=== PATIENT | female | born 1955 | race Caucasian/White ===

== ENCOUNTER → 2021-02-15 | Outpatient (CLI) | payer MEDICARE ==
--- NOTE | 2021-02-15 12:37 | XR ---
EXAMINATION TYPE: XR Hip Complete LT DATE OF EXAM: 02/15/2021 CLINICAL HISTORY: Left hip pain and osteoarthritis. TECHNIQUE: Single AP portable view of left hip is obtained immediately postoperatively. COMPARISON: None. FINDINGS: Left hip arthroplasty is seen and appears satisfactory in alignment and position. Sclerosis and remodeling of the acetabulum. No evidence of fracture or loosening prominent enthesophyte extend s from the greater trochanter superiorly. IMPRESSION: Metallic hardware from left hip arthroplasty is satisfactory in position. Sclerosis and remodeling of the acetabulum.
== END | disposition home or self-care (01) ==
LOC: RADXRMAIN 12:09
PROVIDERS: ATTEND Internal Medicine
DX: M25.852 Other specified joint disorders, left hip (principal); Z96.642 Presence of left artificial hip joint
CPT/HCPCS: 73502

== ENCOUNTER → 2021-04-27 | Outpatient (CLI) | payer MEDICARE ==
--- NOTE | 2021-04-28 10:11 | NM ---
EXAMINATION TYPE: NM DatScan Brain SPECT DATE OF EXAM: 04/27/2021 COMPARISON: NONE HISTORY: Dyskinesia TECHNIQUE: 10 drops of Lugol's solution was administered 1 hour prior to injection as a thyroid bloc carmela agent. After the administration of 4.4 mCi I-123 Ioflupane DaTscan. Images obtained [address] injection. SPECT images of the brain were acquired with axial and coronal reconstructions. FINDINGS: The axial SPECT images demonstrate increased background activity and reduced activity withi n the bilateral striata. IMPRESSION: Abnormal appearance highly suggestive of idiopathic Parkinson's disease or Parkinsonian s yndrome.
== END | disposition home or self-care (01) ==
LOC: RADNMMAIN 10:58
PROVIDERS: ATTEND Psychiatry & Neurology Neurology
DX: G20 Parkinson's disease (principal)
CPT/HCPCS: 78803; A9584

== ENCOUNTER → 2021-05-18 | Outpatient (CLI) | payer MEDICARE ==
--- NOTE | 2021-05-18 14:18 | BD ---
EXAMINATION TYPE: Axial Bone Density DATE OF EXAM: 05/18/2021 COMPARISON: NONE CLINICAL HISTORY: Postmenopausal female. Height: 64.5 IN Weight: 122 LBS FRAX RISK QUESTIONS: History of Fracture in Adulthood: LT HIP AGE 54 RISK FACTORS HISTORY OF: Hip Fracture (Left): YES When: AGE 54 Surgery to Hip(left): YES When: AGE 54 Family History of Osteoporosis: YES MOM AND GRANDMOTHER Active: LIMITED Postmenopausal woman: AGE 51 MEDICATIONS: Additional Medications: PARKINSON MEDS, EXAM MEASUREMENTS: Bone mineral densitometry was performed using the [employer]. Bone mineral density as measured about the Lumbar spine is: ----- L1-L4(G/cm2): 0.816 T Score Values are as follows: ----- L2: -3.4 ----- L3: -3.3 ----- L4: -2.3 ----- L1-L4: -3.0 Bone mineral density BASELINE Bone mineral density about the R hip (g/cm2): 0.679 T Score values are as follows: -----R Neck: -2.6 -----R Total: -2.4 Bone mineral density BASELINE IMPRESSION: Osteoporosis (T Score less than -2.5). There is increased fracture risk and therapy is usually indicated based on age. Re-Screen 1-2 years. NOTE: T-SCORE=SD OF THE YOUNG ADULT MEAN.
--- NOTE | 2021-05-19 07:58 | MM ---
Reason for exam: screening (asymptomatic). Baseline mammogram. History: Patient is postmenopausal. Family history of breast cancer in sister at age 60. Physical Findings: Nurse did not find any significant physical abnormalities on exam. MG 3D Screening Mammo W/Cad Bilateral CC and MLO view(s) were taken. The breast tissue is extremely dense which could obscure a lesion on mammography. There are benign appearing round calcifications bilaterally, greater in the left breast. There is no discrete abnormality. ASSESSMENT: Benign, BI-RAD 2 RECOMMENDATION: Routine screening mammogram of both breasts in 1 year.
== END | disposition home or self-care (01) ==
LOC: RADBDWWP 10:13
PROVIDERS: ATTEND Internal Medicine
DX: Z12.31 Encounter for screening mammogram for malignant neoplasm of breast (principal); M81.0 Age-related osteoporosis without current pathological fracture; Z78.0 Asymptomatic menopausal state; Z80.3 Family history of malignant neoplasm of breast
CPT/HCPCS: 77063; 77067; 77080

== ENCOUNTER → 2023-03-29 | Outpatient (CLI) | payer MEDICARE ==
--- NOTE | 2023-03-30 09:52 | MM ---
Reason for Exam: Screening (asymptomatic). Last mammogram was performed 1 year(s) and 10 month(s) ago. Patient History: Menarche at age 18. First Full-Term at age 24. Postmenopausal. Patient has history of breast feeding. Sister had breast cancer, age 60. Risk Values: Aurelia 5 year model risk: 3.0%. NCI Lifetime model risk: 9.9%. Prior Study Comparison: 05/18/2021 Bilateral Screening Mammogram, [facility]. Tissue Density: The breast tissue is heterogeneously dense. This may lower the sensitivity of mammography. Findings: Analyzed By CAD. No suspicious group of microcalcifications within either breast. Benign-appearing calcifications within both breasts. No new suspicious mass within left breast. Round asymmetry demonstrated within the medial right breast only on the CC view at middle depth. Overall Assessment: Incomplete: need additional imaging evaluation, BI-RAD 0 Management: Diagnostic Mammogram of the right breast. A clinical breast exam by your physician is recommended on an annual basis and results should be correlated with mammographic findings. [facility] will attempt to contact patient to return for supplemental views and ultrasound if indicated. Note on Aurelia scores and lifetime risk: 1. A Aurelia score greater than 3% is considered moderate risk. If this is the case, consider specialist referral to assess eligibility for a risk reducing agent. If overall lifetime risk for the development of breast cancer is 20% or higher, the patient may qualify for future screening with alternating mammogram and breast MRI. Electronically signed and approved by: Justin Mercado D.O.
== END | disposition home or self-care (01) ==
LOC: RADMAMWWP 14:44
PROVIDERS: ATTEND Internal Medicine
DX: Z12.31 Encounter for screening mammogram for malignant neoplasm of breast (principal); Z78.0 Asymptomatic menopausal state; Z80.3 Family history of malignant neoplasm of breast
CPT/HCPCS: 77063; 77067

== ENCOUNTER → 2023-03-29 | Outpatient (CLI) | payer MEDICARE ==
--- NOTE | 2023-03-30 00:09 | US ---
EXAMINATION TYPE: US carotid duplex BILAT DATE OF EXAM: 03/29/2023 COMPARISON: NONE CLINICAL INDICATION: Female, 68 years old with history of Z86.73 hx of tia; TECHNIQUE: Carotid duplex ultrasound examination. Indirect Doppler criteria was utilized. FINDINGS: EXAM MEASUREMENTS: RIGHT: Peak Systolic Velocity (PSV) cm/sec ----- Right CCA: 76.5 ----- Right ICA: 90.9 ----- Right ECA: 88.7 ICA/CCA ratio: 1.2 RIGHT: End Diastole cm/sec ----- Right CCA: 20.4 ----- Right ICA: 27.1 ----- Right ECA: 0.0 LEFT: Peak Systolic Velocity (PSV) cm/sec ----- Left CCA: 97.3 ----- Left ICA: 103.0 ----- Left ECA: 82.3 ICA/CCA ratio: 1.1 LEFT: End Diastole cm/sec ----- Left CCA: 24.6 ----- Left ICA: 25.4 ----- Left ECA: 8.5 VERTEBRALS (direction of flow): Right Vertebral: Antegrade Left Vertebral: Antegrade Rhythm: Normal No significant stenosis IMPRESSION: 1. No significant flow-limiting stenosis based on velocities. Criteria for Assigning % of Stenosis / Diameter reduction (Estimation based on the indirect measurements of the internal carotid artery velocities (ICA PSV). 1. Normal (no stenosis)=ICA PSV < 125 cm/s: ratio < 2.0: ICA EDV<40 cm/s. 2. Less than 50% stenosis=ICA PSV < 125 cm/s: ratio < 2.0: ICA EDV<40 cm/s. 3. 50 to 69% stenosis=ICA PSV of 125 to 230 cm/s: ration 2.0 ? 4.0: ICA EDV 40-100 cm/s. 4. Greater than 70% stenosis to near occlusion= ICA PSV > 230 cm/s: ratio > 4.0: ICA EDV > 100 cm/s. 5. Near occlusion= ICA PSV velocities may be low or undetectable: variable ratio and ICA EDV. 6. Total occlusion=unable to detect flow.
== END | disposition home or self-care (01) ==
LOC: RADUSWWP 14:46
PROVIDERS: ATTEND Internal Medicine
DX: Z86.73 Personal history of transient ischemic attack (TIA), and cerebral infarction without residual deficits (principal)
CPT/HCPCS: 93880

== ENCOUNTER → 2023-04-06 | Outpatient (CLI) | payer MEDICARE ==
--- NOTE | 2023-04-06 13:38 | MM ---
Reason for Exam: Additional evaluation requested from abnormal screening. Last screening mammogram was performed less than 1 month ago. Patient History: Menarche at age 18. First Full-Term at age 24. Postmenopausal. Patient has history of breast feeding. Sister had breast cancer, age 60. Risk Values: Aurelia 5 year model risk: 3.0%. NCI Lifetime model risk: 9.9%. Tissue Density: Right: The breast tissue is heterogeneously dense. This may lower the sensitivity of mammography. Findings: Analyzed By CAD. Basilar density persists seen best on the CC view medial to the nipple 3.4 cm from the nipple likely below the nipple on the MLO view. Ultrasound is recommended. Overall Assessment: Incomplete: need additional imaging evaluation, BI-RAD 0 Management: Diagnostic Breast Ultrasound of the right breast. . Results were given to the patient verbally at the time of exam. Patient should continue monthly self-breast exams. A clinical breast exam by your physician is recommended on an annual basis. This exam should not preclude additional follow-up of suspicious palpable abnormalities. Note on Aurelia scores and lifetime risk: 1. A Aurelia score greater than 3% is considered moderate risk. If this is the case, consider specialist referral to assess eligibility for a risk reducing agent. 2. If overall lifetime risk for the development of breast cancer is 20% or higher, the patient may qualify for future screening with alternating mammogram and breast MRI. Electronically signed and approved by: Gregory Carbajal M.D. Radiologis
--- NOTE | 2023-04-06 14:29 | USB ---
Reason for Exam: Additional evaluation requested from abnormal screening. Patient History: Menarche at age 18. First Full-Term at age 24. Postmenopausal. Patient has history of breast feeding. Sister had breast cancer, age 60. Risk Values: Aurelia 5 year model risk: 3.0%. NCI Lifetime model risk: 9.9%. Technique: Method: Targeted. Prior Study Comparison: 05/18/2021 Bilateral Screening Mammogram, [facility]. 03/29/2023 Bilateral MG 3D screening mammo w/cad, [facility]. Findings: The lower inner quadrant of the right breast and the retroareolar of the right breast were scanned. 5 x 3 mm cyst noted at the right 4:00 position 4 cm from the nipple. No solid masses are detected.. Overall Assessment: Benign, BI-RAD 2 Management: Screening Mammogram of both breasts in 1 year. A clinical breast exam by your physician is recommended on an annual basis and results should be correlated with mammographic findings. This exam should not preclude additional follow-up of suspicious palpable abnormalities. Results were given to the patient verbally at the time of exam. Electronically signed and approved by: Gregory Carbajal M.D. Radiologis
== END | disposition home or self-care (01) ==
LOC: RADMAMWWP 13:08
PROVIDERS: ATTEND Internal Medicine
DX: R92.8 Other abnormal and inconclusive findings on diagnostic imaging of breast (principal); Z78.0 Asymptomatic menopausal state; Z80.3 Family history of malignant neoplasm of breast
CPT/HCPCS: 77065; 76642; G0279; 77061

== ENCOUNTER → 2023-04-20 | Outpatient (CLI) | payer MEDICARE ==
[2023-04-20 16:41] LABS: BUN/Creat Ratio 48.17 Ratio (12.00-20.00); Blood Urea Nitrogen 28.9 mg/dL (9.0-27.0); Calcium 9.6 mg/dL (8.7-10.3); Carbon Dioxide 25.5 mmol/L (21.6-31.8); Chloride 102 mmol/L (96-109); Glucose 101 mg/dL (70-110); Magnesium 2.1 mg/dL (1.5-2.4); Potassium 4.2 mmol/L (3.5-5.5); Sodium 139 mmol/L (135-145)
== END | disposition home or self-care (01) ==
LOC: LABWHC1 11:12
PROVIDERS: ATTEND Internal Medicine
DX: G20 Parkinson's disease (principal); E87.5 Hyperkalemia
CPT/HCPCS: 36415; 80048; 82306; 82533; 82607; 83735

== ENCOUNTER → 2023-04-24 | Outpatient (CLI) | payer MEDICARE | END | disposition home or self-care (01) | LOC: LABWHC1 14:07 | PROVIDERS: ATTEND Internal Medicine | DX: E87.5 Hyperkalemia (principal) | CPT/HCPCS: 36415; 82088; 84244 ==

== ENCOUNTER → 2024-04-01 | Outpatient (CLI) | payer MEDICARE ==
--- NOTE | 2024-04-17 10:54 | MM ---
Reason for Exam: Screening (asymptomatic). Last screening mammogram was performed 12 month(s) ago. Patient History: Menarche at age 18. First Full-Term at age 24. Postmenopausal. Patient has history of breast feeding. Sister had breast cancer, age 60. Risk Values: Aurelia 5 year model risk: 3.0%. NCI Lifetime model risk: 9.5%. Prior Study Comparison: 05/18/2021 Bilateral Screening Mammogram, [facility]. 03/29/2023 Bilateral MG 3D screening mammo w/cad, [facility]. 04/06/2023 Right MG 3D work up w/cad RT, [facility]. Tissue Density: The breasts are extremely dense, which lowers the sensitivity of mammography. Findings: Analyzed By CAD. There is no suspicious group of microcalcifications or new suspicious mass in either breast. Benign-appearing calcifications. Stable asymmetric density in the outer margin (from multiple prior exams. Able chronic nodularity upper margin left breast. Overall Assessment: Benign, BI-RAD 2 Management: Screening Mammogram of both breasts in 1 year. . Patient should continue monthly self-breast exams. A clinical breast exam by your physician is recommended on an annual basis. This exam should not preclude additional follow-up of suspicious palpable abnormalities. Note on Aurelia scores and lifetime risk: 1. A Aurelia score greater than 3% is considered moderate risk. If this is the case, consider specialist referral to assess eligibility for a risk reducing agent. 2. If overall lifetime risk for the development of breast cancer is 20% or higher, the patient may qualify for future screening with alternating mammogram and breast MRI. Electronically signed and approved by: Chase Pettit M.D. Radiologis
== END | disposition home or self-care (01) ==
LOC: RADMAMWWP 12:57
PROVIDERS: ATTEND Internal Medicine
DX: Z12.31 Encounter for screening mammogram for malignant neoplasm of breast
CPT/HCPCS: 77063; 77067

== ENCOUNTER → 2024-05-15 | Outpatient (CLI) | payer MEDICARE ==
--- NOTE | 2024-05-15 11:37 | US ---
EXAMINATION TYPE: US liver DATE OF EXAM: 05/15/2024 COMPARISON: NONE CLINICAL INDICATION: Female, 69 years old with history of R74.8 ELEVATED LEVELS E55.9 VITAMIN D DEFIC IENCY; abn labs, no symptoms TECHNIQUE: Grayscale and color Doppler imaging of the right upper quadrant was performed. FINDINGS: EXAM MEASUREMENTS: Liver Length: 15.6cm Gallbladder Wall: 0.2cm CBD: 0.5 cm Right Kidney: 10.7 x 4.2 x 4.4 cm Pancreas: wnl Liver: wnl Gallbladder: neck fold Evidence for sonographic Bernstein's sign: no CBD: wnl Right Kidney: wnl IMPRESSION: No evidence for acute process. [facility], , 05/15/2024 11:34 AM
== END | disposition home or self-care (01) ==
LOC: RADUSWWP 10:36
PROVIDERS: ATTEND Internal Medicine
CPT/HCPCS: 76705

== ENCOUNTER 2024-06-11 13:54 | Emergency (ER) | payer MEDICARE ==
[2024-06-11 14:05] VITALS: RESP 18
--- NOTE | 2024-06-11 14:58 | ED ---
Upper Extremity HPI - General Chief Complaint: Extremity Injury, Upper Stated Complaint: fall, left wrist shoulder injury Time Seen by Provider: 06/11/24 14:10 Source: patient, RN notes reviewed Mode of arrival: ambulatory Limitations: no limitations - History of Present Illness Initial Comments: 69-year-old female presents emergency department chief complaint left arm injury. Patient states she fell on Monday. Patient states she was trapped between the wall and an object. Patient states that she has Parkinson's caused her to fall. She states she was laying there for 1 hour. Patient states that she has left shoulder pain, left wrist weakness states she cannot extend her wrist. No significant paresthesias states he had felt numb initially. - Related Data Allergies Allergy/AdvReac Type Severity Reaction Status Date / Time Sulfa (Sulfonamide Allergy Rash/Hives Verified 06/11/24 14:05 Antibiotics) Review of Systems ROS Statement: Those systems with pertinent positive or pertinent negative responses have been documented in the HPI. ROS Other: All systems not noted in ROS Statement are negative. Past Medical History Additional Past Medical History / Comment(s): parkinsons, Additional Past Surgical History / Comment(s): kaylaograhm, Past Psychological History: No Psychological Hx Reported Smoking Status: Never smoker Past Alcohol Use History: None Reported Past Drug Use History: None Reported General Exam Limitations: no limitations General appearance: alert, in no apparent distress Head exam: Present: atraumatic, normocephalic, normal inspection Neck exam: Present: normal inspection. Absent: tenderness, meningismus, lymphadenopathy Respiratory exam: Present: normal lung sounds bilaterally. Absent: respiratory distress, wheezes, rales, rhonchi, stridor Cardiovascular Exam: Present: regular rate, normal rhythm, normal heart sounds. Absent: systolic murmur, diastolic murmur, rubs, gallop, clicks Extremities exam: Present: other (There is tenderness at the proximal aspect of L humerus, patient is unable to extend her wrist neurovascular intact personal service workers strength equal bilaterally) Skin exam: Present: warm, dry, intact, normal color. Absent: rash Course Vital Signs 06/11/24 14:00 Temperature 98.4 F Pulse Rate 110 H Respiratory 18 Rate Blood Pressure 142/74 O2 Sat by Pulse 95 Oximetry Medical Decision Making - Medical Decision Making Was pt. sent in by a medical professional or institution (, PA, [employer], urgent care, hospital, or fci...) When possible be specific @ -No Did you speak to anyone other than the patient for history (EMS, parent, family, police, friend...)? What history was obtained from this source @ -No Did you review nursing and triage notes (agree or disagree)? Why? @ -I reviewed and agree with nursing and triage notes Were old charts reviewed (outside hosp., previous admission, EMS record, old EKG, old radiological studies, urgent care reports/EKG's, fci records)? Report findings @ -No old charts were reviewed Differential Diagnosis (chest pain, altered mental status, abdominal pain women, abdominal pain men, vaginal bleeding, weakness, fever, dyspnea, syncope, headache, dizziness, GI bleed, back pain, seizure, CVA, palpatations, mental health, musculoskeletal)? @ -Fall, left shoulder dislocation, arm fracture, radial nerve palsy EKG interpreted by me (3pts min.). @ -None X-rays interpreted by me (1pt min.). @ -X-ray left shoulder shows possible proximal humerus fracture CT interpreted by me (1pt min.). @ -None done U/S interpreted by me (1pt. min.). @ -None done What testing was considered but not performed or refused? (CT, X-rays, U/S, labs)? Why? @ -None What meds were considered but not given or refused? Why? @ -None Did you discuss the management of the patient with other professionals (professionals i.e. , PA, [employer], lab, RT, psych nurse, social sciences professor, plant puller, teacher, third officer, pillowcase cutter)? Give summary @ -No Was smoking cessation discussed for >3mins.? @ -No Was critical care preformed (if so, how long)? @ -No Were there social determinants of health that impacted care today? How? (Homelessness, low income, unemployed, alcoholism, drug addiction, transportation, low edu. Level, literacy, decrease access to med. care, custodial, rehab)? @ -No Was there de-escalation of care discussed even if they declined (Discuss DNR or withdrawal of care, Hospice)? DNR status @ -No What co-morbidities impacted this encounter? (DM, HTN, Smoking, COPD, CAD, Cancer, CVA, ARF, Chemo, Hep., AIDS, mental health diagnosis, sleep apnea, morbid obesity)? @ -None Was patient admitted / discharged? Hospital course, mention meds given and route, prescriptions, significant lab abnormalities, going to OR and other pertinent info. @ -Discharge patient has possible humerus fracture was placed in a sling she does have radial nerve palsy more likely from the fall, prolonged laying on her left arm. She will follow-up with orthopedics regarding this. Undiagnosed new problem with uncertain prognosis? @ -No Drug Therapy requiring intensive monitoring for toxicity (Heparin, Nitro, Insulin, Cardizem)? @ -No Were any procedures done? @ -No Diagnosis/symptom? @ -Proximal humerus fracture, radial nerve palsy Acute, or Chronic, or Acute on Chronic? @ -Acute Uncomplicated (without systemic symptoms) or Complicated (systemic symptoms)? @ -Uncomplicated Side effects of treatment? @ -No Exacerbation, Progression, or Severe Exacerbation? @ -No Poses a threat to life or bodily function? How? (Chest pain, USA, HI, pneumonia, PE, COPD, DKA, ARF, appy, cholecystitis, CVA, Diverticulitis, Homicidal, Suicidal, threat to staff... and all critical care pts) @ -No Disposition Clinical Impression: Left humeral fracture, Radial nerve palsy Disposition: HOME SELF-CARE Condition: Stable Instructions (If sedation given, give patient instructions): Arm Fracture in Adults (ED) Additional Instructions: Please return to the Emergency Department if symptoms worsen or any other concerns. Is patient prescribed a controlled substance at d/c from ED?: No Referrals: Nguyễn Gandhi DO [Primary Care Provider] - 1-2 days Andrae Bernstein MD [STAFF PHYSICIAN] - 1-2 days Time of Disposition: 16:09
--- NOTE | 2024-06-11 15:17 | XR ---
EXAMINATION TYPE: XR shoulder complete 3 views LT DATE OF EXAM: 06/11/2024 Comparison: None Clinical History: 69-year-old female fall on Monday, pain Findings: AC joint appears congruent and intact. Subacromial space is preserved. There is mild degenerative spu rring at the glenoid. Some irregularity and lucency along the mid articular surface of the humeral he ad. Small delineation greater tuberosity. Otherwise, no acute fracture, subluxation or dislocation is seen. Impression: 1. Mild glenohumeral joint osteoarthrosis. 2. Either projectional artifact versus subtle subchondral impaction injury along the mid humeral head articular surface. [facility], , 06/11/2024 3:15 PM
[2024-06-11 16:43] VITALS: BP 137/82; PULSE 98; TEMP 98.2
== END 2024-06-11 16:43 | disposition home or self-care (01) ==
LOC: EC 13:54
CPT/HCPCS: 99283

== ENCOUNTER 2024-07-15 15:18 | Inpatient (IN) | payer MEDICARE ==
--- NOTE | 2024-07-15 16:00 | ED ---
Extremity Problem HPI - General Chief complaint: Recheck/Abnormal Lab/Rx Stated complaint: Numbness R Leg,Lower Pelvic Pain Time Seen by Provider: 07/15/24 15:33 Source: patient, RN notes reviewed Mode of arrival: ambulatory Limitations: no limitations - History of Present Illness Initial comments: This is a 69-year-old female who presents to the emergency department for pelvic pain and right leg numbness. States that yesterday she was just sitting down and she started to develop pain in the right side of her pelvis/hip and right lower back. She then started to develop numbness going down the leg. States that pain has since persisted. She is taking ibuprofen without any relief in symptoms. Denies any known injuries. She does have Parkinson's and tends to fall frequently, however they do not recall her falling recently. She usually is able to ambulate with a walker, however since she developed this pain she has been unable to ambulate. - Related Data Home Medications Medication Instructions Recorded Confirmed Carbidopa-Levodopa ER 25-100Mg 1 tab PO BID@1000,1900 07/15/24 07/15/24 [Sinemet CR 25-100 mg] Carbidopa-Levodopa ER 50-200Mg 1 tab PO BID@0700,1500 07/15/24 07/15/24 [Sinemet CR 50-200 mg] Metoprolol Succinate (ER) [Toprol 25 mg PO HS 07/15/24 07/15/24 Xl] Pramipexole Di-HCl [Mirapex ER] 0.75 mg PO BID 07/15/24 07/15/24 amantadine HCL [Amantadine] 100 mg PO BID 07/15/24 07/15/24 Allergies Allergy/AdvReac Type Severity Reaction Status Date / Time Sulfa (Sulfonamide Allergy Rash/Hives Verified 07/15/24 16:57 Antibiotics) Review of Systems ROS Statement: Those systems with pertinent positive or pertinent negative responses have been documented in the HPI. ROS Other: All systems not noted in ROS Statement are negative. Past Medical History Additional Past Medical History / Comment(s): parkinsons, Additional Past Surgical History / Comment(s): renuka, Past Psychological History: No Psychological Hx Reported Smoking Status: Never smoker Past Alcohol Use History: None Reported Past Drug Use History: None Reported General Exam Limitations: no limitations General appearance: alert, in no apparent distress Head exam: Present: atraumatic, normocephalic, normal inspection Respiratory exam: Present: normal lung sounds bilaterally. Absent: respiratory distress, wheezes, rales, rhonchi, stridor Cardiovascular Exam: Present: regular rate, normal rhythm, normal heart sounds. Absent: systolic murmur, diastolic murmur, rubs, gallop, clicks Extremities exam: Present: other (Tenderness to palpation over the right hip. Range of motion of the right lower extremity is limited by pain. No tenderness to the rest of the right lower extremity. 2+ DP and PT pulses) Neurological exam: Present: alert, oriented X3, CN II-XII intact Psychiatric exam: Present: normal affect, normal mood Skin exam: Present: warm, dry, intact, normal color. Absent: rash Course Vital Signs 07/15/24 07/15/24 07/15/24 15:23 18:56 20:50 Temperature 98.6 F Pulse Rate 100 86 102 H Respiratory 18 16 18 Rate Blood Pressure 156/81 139/69 O2 Sat by Pulse 98 96 93 L Oximetry 07/15/24 21:18 Temperature 99.1 F Pulse Rate Respiratory Rate Blood Pressure O2 Sat by Pulse Oximetry Medical Decision Making - Medical Decision Making This is a 69-year-old female who presents to the emergency department for right- sided hip pain and right leg numbness. Was pt. sent in by a medical professional or institution? @ -No Did you speak to anyone other than the patient for history? @ -No Did you review nursing and triage notes? @ -Yes, and I agree, it is accurate with regards to the patient's symptoms. Were old charts reviewed? @ -No Differential Diagnosis? @ -Differential Musculoskeletal: Muscular strain, contusion, ligament sprain, fracture, arthritis, septic arthritis, bursitis, cellulitis, muscle spasm, nerve compression, DVT, arterial occlusion, herpes zoster, electrolyte abnormality, tumor.... This is not meant to be in all inclusive list EKG interpreted by me (3pts min.)? @ -Not obtained X-rays interpreted by me (1pt min.)? @ -X-ray of the lumbar spine and right hip/AP pelvis obtained. My interpretation of both images identifies no acute fractures. CT interpreted by me (1pt min.)? @ -CT scan of the pelvis obtained. My interpretation identifies a right piriformis hematoma U/S interpreted by me (1pt. min.)? @ -Not obtained What testing was considered but not performed? (CT, X-rays, U/S, labs)? Why? @ -None What meds were considered but not given? Why? @ -None Did you discuss the management of the patient with other professionals? @ -Yes, Dr. Kwan, orthopedics, who advised admission if patient cannot ambulate. Surgical plan unclear at this time. Case discussed with medical team who requested orthopedic admission with them on consult. Orthopedics is agreeable. Did you reconcile home meds? @ -No Was smoking cessation discussed for >3mins.? @ -No Was critical care preformed (if so, how long)? @ -No Were there social determinants of health that impacted care today? How? (Homelessness, low income, unemployed, alcoholism, drug addiction, transportation, low edu. Level, literacy, decrease access to med. care, snf, rehab)? @ -No Was there de-escalation of care discussed even if they declined? (Discuss DNR or withdrawal of care, Hospice)? @ -No What co-morbidities impacted this encounter? (DM, HTN, Smoking, COPD, CAD, Cancer, CVA, Hep., AIDS, mental health diagnosis, sleep apnea, morbid obesity)? @ -Parkinson's Was patient admitted / discharged? @ -Admitted. We first started with x-rays of the lumbar spine and right hip/AP pelvis. No acute findings were identified. Patient was given pain medication, but was still unable to ambulate. We then proceeded with a CT scan of the pelvis. This demonstrated a right piriformis hematoma tracking near the sciatic nerve, likely contributing to the numbness. She also has an acute right sacral ala fracture with minimal separation and an acute left periprosthetic fracture of the left acetabulum. Case discussed with Dr. Kwan, orthopedics. She advised that the surgical plan at this point is not entirely clear, however if the patient is still unable to ambulate, admission would be advised. Patient subsequently admitted to orthopedics for further management of the right piriformis hematoma with sacral fracture and left periprosthetic fracture of the left acetabulum. Medicine consulted for medical management. Case discussed with ED attending Dr. Hayden. Undiagnosed new problem with uncertain prognosis? @ -None Drug Therapy requiring intensive monitoring for toxicity (Heparin, Nitro, Insulin, Cardizem)? @ -None Were any procedures done? @ -None Diagnosis/symptom? @ -Right piriformis hematoma, sacral fracture, left periprosthetic fracture of left acetabulum Acute, or Chronic, or Acute on Chronic? @ -Acute Uncomplicated (without systemic symptoms) or Complicated (systemic symptoms)? @ -Uncomplicated Side effects of treatment? @ -None Exacerbation, Progression, or Severe Exacerbation] @ -Not applicable Poses a threat to life or bodily function? @ -Yes, patient is unable to ambulate - Lab Data Result diagrams: 07/15/24 19:34 07/15/24 19:34 Lab Results 07/15/24 07/15/24 07/15/24 Range/Units 19:34 19:34 19:34 WBC 7.9 (3.8-10.6) k/uL RBC 3.82 (3.80-5.40) m/uL Hgb 12.1 (11.4-16.0) gm/dL Hct 36.9 (34.0-46.0) % MCV 96.5 (80.0-100.0) fL MCH 31.6 (25.0-35.0) pg MCHC 32.7 (31.0-37.0) g/dL RDW 12.9 (11.5-15.5) % Plt Count 274 (150-450) k/uL MPV 8.3 Neutrophils % 77 % Lymphocytes % 14 % Monocytes % 5 % Eosinophils % 2 % Basophils % 1 % Neutrophils # 6.1 (1.3-7.7) k/uL Lymphocytes # 1.1 (1.0-4.8) k/uL Monocytes # 0.4 (0-1.0) k/uL Eosinophils # 0.2 (0-0.7) k/uL Basophils # 0.1 (0-0.2) k/uL PT 11.5 (10.0-12.5) sec INR 1.1 (<1.2) APTT 22.2 (22.0-30.0) sec Sodium 138 (137-145) mmol/L Potassium 4.0 (3.5-5.1) mmol/L Chloride 110 H (98-107) mmol/L Carbon Dioxide 25 (22-30) mmol/L Anion Gap 3 mmol/L BUN 23 H (7-17) mg/dL Creatinine 0.53 (0.52-1.04) mg/dL Est GFR (CKD-EPI)AfAm >90 (>60 ml/min/1.73 sqM) Est GFR (CKD-EPI)NonAf >90 (>60 ml/min/1.73 sqM) Glucose 87 (74-99) mg/dL Calcium 8.8 (8.4-10.2) mg/dL Total Bilirubin 0.5 (0.2-1.3) mg/dL AST 23 (14-36) U/L ALT <6 (4-34) U/L Alkaline Phosphatase 145 H (38-126) U/L Total Protein 5.9 L (6.3-8.2) g/dL Albumin 3.3 L (3.5-5.0) g/dL - Radiology Data Radiology results: report reviewed, image reviewed Disposition Clinical Impression: Hematoma of muscle, Periprosthetic fracture around internal prosthetic hip joint, Sacral fracture Disposition: ADMITTED IP TO THIS HOSP
[2024-07-15] MEDS: KETOROLAC 15 MG/ML 1 ML VIAL IVP STA (16:01)
[2024-07-15] MEDS: MORPHINE SULFATE 4 MG/ML SYRINGE IVP STA (16:02)
--- NOTE | 2024-07-15 16:46 | XR ---
EXAMINATION TYPE: XR lumbar spine 2 or 3V DATE OF EXAM: 07/15/2024 4:42 PM COMPARISON: None CLINICAL INDICATION: Female, 69 years old with history of Pain; TECHNIQUE: XR lumbar spine 2 or 3V - Frontal, lateral and coned in L5-S1 lateral views of the spine. FINDINGS: No evidence of any acute osseous pathology. No evidence of loss of vertebral body height i s seen. There is normal alignment of the lumbar vertebral bodies. Scattered disc space narrowing. Mul tilevel marginal osteophyte formation throughout the visualized spine. There is facet joint arthropat hy throughout the spine. Scattered at least mild neural foraminal stenosis. Atherosclerosis of the ar terial vasculature. IMPRESSION: 1. No acute fracture. 2. Mild multilevel disc degeneration. [facility], , 07/15/2024 4:44 PM
--- NOTE | 2024-07-15 16:47 | XR ---
EXAMINATION TYPE: XR Hip RT and AP Pelvis DATE OF EXAM: 07/15/2024 4:42 PM COMPARISON: None CLINICAL INDICATION: Female, 69 years old with history of Pain; PHH, pain TECHNIQUE: XR Hip RT and AP Pelvis; hip was examined in the frontal and lateral projections and a AP pelvis. FINDINGS: Post arthroplasty changes to the left hip, hardware is intact, alignment is appropriate. No evidence of fracture. No evidence of any acute osseous pathology or joint dislocation. Right hip mild degeneration with osteophyte formation joint space tearing. IMPRESSION: 1. Mild right hip osteoarthrosis. 2. Left hip arthroplasty with hardware intact and in appropriate alignment. No acute fracture. [facility], , 07/15/2024 4:45 PM
[2024-07-15] MEDS: HYDROmorphone 0.5 MG/0.5 ML SYRINGE IVP STA (17:31)
[2024-07-15] MEDS: LORazepam 2 MG/ML INJ IV STA (17:31)
--- NOTE | 2024-07-15 18:57 | CT ---
EXAMINATION TYPE: CT pelvis wo con DATE OF EXAM: 07/15/2024 6:34 PM COMPARISON: Radiograph same day CLINICAL INDICATION: Female, 69 years old with history of Right sided hip pain; Right hip pain TECHNIQUE: Axial CT pelvis wo con;Sagittal and coronal reformats were created on a separate workstat ion. Contrast used: mL of , (none if empty) Oral contrast used: (none if empty) CT DLP: 403.3 mGycm, Automated exposure control for dose reduction was used. FINDINGS: STOMACH AND BOWEL: No evidence of bowel obstruction. PERITONEUM/RETROPERITONEUM: No evidence of pneumoperitoneum or free fluid. VASCULATURE: No evidence of aortic aneurysm. MUSCULOSKELETAL: No fractures identified including nondisplaced right sacral alar fracture. There is associated hematoma tracking along the piriformis muscle. The sciatic nerve on the right. Left peripr osthetic fracture of the pelvis. Left inferior pubic ramus cortical buckling suggestive of fracture. LYMPH NODES: No gross evidence for lymphadenopathy. SOFT TISSUE/ABDOMINAL WALL: Unremarkable IMPRESSION: 1. Acute left periprosthetic fracture of the left acetabulum. 2. Acute right sacral ala fracture with minimal separation. 3. Right piriformis hematoma tracking near the sciatic nerve. 4. Left inferior pubic ramus fracture with cortical buckling, this is age indeterminate possibly sub acute to more remote. [facility], , 07/15/2024 6:54 PM
[2024-07-15] MEDS ORDERED: NALOXONE 0.4 MG/ML 1 ML VIAL IV PRN (19:51)
[2024-07-15] MEDS ORDERED: ACETAMINOPHEN TAB 325 MG TAB PO PRN (19:51)
[2024-07-15 19:54] LABS: Basophils # (A) 0.1 k/uL (0-0.2); Basophils % (A) 1 %; Eosinophils # (A) 0.2 k/uL (0-0.7); Eosinophils % (A) 2 %; HCT 36.9 % (34.0-46.0); HGB 12.1 gm/dL (11.4-16.0); Lymphocytes # (A) 1.1 k/uL (1.0-4.8); Lymphocytes % (A) 14 %; MCH 31.6 pg (25.0-35.0); MCHC 32.7 g/dL (31.0-37.0); MCV 96.5 fL (80.0-100.0); Mean Platelet Volume 8.3; Monocytes # (A) 0.4 k/uL (0-1.0); Monocytes % (A) 5 %; Neutrophils # (A) 6.1 k/uL (1.3-7.7); Neutrophils % (A) 77 %; Platelet Count 274 k/uL (150-450); RBC 3.82 m/uL (3.80-5.40); RDW 12.9 % (11.5-15.5); WBC 7.9 k/uL (3.8-10.6)
[2024-07-15 20:02] LABS: INR 1.1 (<1.2); Partial Thromboplastin Time 22.2 sec (22.0-30.0); Prothrombin Time 11.5 sec (10.0-12.5)
[2024-07-15 20:09] LABS: ALT <6 U/L (4-34); AST 23 U/L (14-36); African American GFR (CKD) >90 (>60 ml/min/1.73 sqM); Albumin 3.3 g/dL (3.5-5.0); Alkaline Phosphatase 145 U/L (38-126); Anion Gap 3 mmol/L; Blood Urea Nitrogen 23 mg/dL (7-17); Calcium 8.8 mg/dL (8.4-10.2); Carbon Dioxide 25 mmol/L (22-30); Chloride 110 mmol/L (98-107); Glucose 87 mg/dL (74-99); Non-African American GFR(CKD) >90 (>60 ml/min/1.73 sqM); Sodium 138 mmol/L (137-145); Total Bilirubin 0.5 mg/dL (0.2-1.3); Total Protein 5.9 g/dL (6.3-8.2)
[2024-07-15] MEDS: METOPROLOL SUCCINATE (ER) 25 MG TAB.ER.24H PO SCH (20:47)
[2024-07-15] MEDS: PRAMIPEXOLE 0.25 MG TAB PO SCH (20:47)
[2024-07-15] MEDS: HYDROcodone/APAP 5-325MG 1 EACH TAB PO PRN (20:47)
--- NOTE | 2024-07-15 21:16 | P.CONS ---
History of Present Illness - Reason for Consult Consult date: 07/15/24 Medical management Requesting physician: Hanna Barnes - Chief Complaint Pelvic pain - History of Present Illness Patient is a 69 year old female with past medical history of parkinson's disease, osteoporosis and frequent falls who presented to the ED with right sided pelvic pain and right leg numbness. She mentions the pain started yesterday when she was sitting in her chair. She was trying to reach for something when she experienced the pain on the right side of the hip and lower back. The pain was a 10 out of 10 severity. Subsequently her right leg started feeling numb. Currently the pain is still 10/10 that makes it difficult for her to ambulate but she notes an improvement in her numbness. She uses a walker at home to ambulate. She states that she falls frequently due to her parkinson's disease and most of the times she lands on her hips. She reports sustaining a fall about 6 weeks ago. At the time she fell on her left side and hurt her left upper extremity. She did not hit her head, but she was not able to get up on her own and was lying on the floor for 1 hour. She did get it checked out at the time and the evaluation was negative for a fracture. Additionally, she states her dyskinesia has gotten worse recently. The dyskinesia is intermittent. When she doesn't move for a long time her dyskinesia tends to get worse. She reports that both her legs have been getting progressively weaker over the past several months. Moreover, she had a bone density scan done in 2020 that shows T score < -2.5, consitent with osteoporosis. She also endorses shortness of breath, nausea while taking her medications and an increased fear of falling. Denies fever, chills, chest pain, cough, abdominal pain, vomiting, slurred speech, headache. Case discussed with the ED provider and ED documentation reviewed. In the ED patient was treated with Dilaudid 0.5 mg, ketorolac 15 mg, lorazepam 1 mg, morphine 4 mg. -Vitals on admission T 98.6 F, TN 100, RR 18, BP 156/81, O2 sat 98% on room air -Lumbar spine X ray shows no acute fracture, mild multilevel disc degeneration -Hip/pelvis x-ray shows mild right hip osteoarthritis, left hip arthroplasty with hardware intact and in appropriate alignment, no acute fracture -Pelvis CT shows acute left periprosthetic fracture of the left acetabulum, acute right sacral ala fracture with minimal separation, right pyriformis hematoma tracking near sciatic nerve, left inferior pubic ramus fracture with cortical buckling-subacute/remote -CBC shows WBC 7.9, hemoglobin 12.1, platelet count 274 -CMP shows Na 138, potassium 4.0, BUN 23, ALP 145, total protein 5.9, albumin 3.3 -Coagulation panel shows PT 11.5, INR 1.1, APTT 22.2 Review of systems: Pertinent positives and negatives as discussed in HPI, a complete review of systems was performed and all other systems are negative. PMH: Parkinson's disease, osteoporosis PSH: Left partial hip replacement 20-25 years ago Allergies: Sulfa Social history: Tobacco: Never smoker Alcohol: Denies use Recreational drugs: Denies use Travel: No recent travel history Sick contacts: None Physical examination: Vital signs reviewed General: nontoxic, no distress, appears at stated age, normal BMI, masked facies Derm: warm, dry, intact Head: atraumatic, normocephalic, symmetric Eyes: EOMI, anicteric sclera Mouth: no lip lesion, mucus membranes moist Cardiovascular: S1 S2 reg, no murmur Lungs: CTA bilateral, no rhonchi, no rales, no accessory muscle use Abdominal: soft, non-tender to palpation Extremities: No limb atrophy or contractures noted, no hip skin abnormalities noted, no edema noted Neuro: Alert and Oriented, strenght 5/5 of the UE b/l, cogwheel rigidity, Dyskinesia and strength 3/5 of the LE b/l, Psych: well appearing, appropriate affect Assessment/Plan: Patient is a 69 year old female with PMH of parkinson's disease, osteoporosis and multiple falls who presented to the ED with right sided pelvic pain and right leg numbness. She has been admitted for observation and monitoring by the primary surgical team and she is seen in medical consultation for medical management. Active: #. Elevated alkaline phosphatase -ALP 145 -Vitamin D 25-Hydroxy level in 02/12 -17.3 ng/ml -Bone density scan in 2020 showed T< -2.5, osteoporosis -Liver ultrasound in 06/06 showed no evidence for acute process -Monitor CMP #. Parkinson's disease -Continue home meds Carbidop-levodopa 25-100 mg PO BID(1000,1900) and 50-100 PO BID(0700,1500), Amantadine 100 mg PO BID, Pramipexole 0.75 mg PO BID #. Hypertension -Continue home med metoprolol 25 mg PO HS #. Right Sacral ala fracture #. Right pyriformis hematoma #. Periprosthetic fracture of the left acetabulum -Pelvis CT shows acute left periprosthetic fracture of the left acetabulum, acute right sacral ala fracture with minimal separation, right pyriformis hematoma tracking near sciatic nerve, left inferior pubic ramus fracture with cortical buckling-subacute/remote -Lumbar spine X ray shows no acute fracture, mild multilevel disc degeneration -Hip/pelvis x-ray shows mild right hip osteoarthritis, left hip arthroplasty with hardware intact and in appropriate alignment, no acute fracture -Patient currently on acetaminophen 60 mg p.o. every 6 hours as needed, ibuprofen 400 mg p.o. every 6 hours as needed, ketorolac 15 mg IVP every 6 hours as needed(PS 4-6), [place] p.o. every 4 hours as needed (PS 4-6)morphine 4 mg IV every 4 hours as needed(PS 7-10) for pain management per primary surgical team. #. Nausea and vomiting -Continue Ondansetron 4 mg IVP Q8HR PRN F: None E: Replete as required N: Regular diet A: Ambulatory DVT prophylaxis: Defer to primary surgery GI prophylaxis: Pantoprazole 40 mg PO daily Past Medical History Additional Past Medical History / Comment(s): parkinsons, Additional Past Surgical History / Comment(s): renuka, Past Psychological History: No Psychological Hx Reported Smoking Status: Never smoker Past Alcohol Use History: None Reported Past Drug Use History: None Reported Medications and Allergies Home Medications Medication Instructions Recorded Confirmed Type Carbidopa-Levodopa ER 25-100Mg 1 tab PO BID@1000,1900 07/15/24 07/15/24 History [Sinemet CR 25-100 mg] Carbidopa-Levodopa ER 50-200Mg 1 tab PO BID@0700,1500 07/15/24 07/15/24 History [Sinemet CR 50-200 mg] Metoprolol Succinate (ER) [Toprol 25 mg PO HS 07/15/24 07/15/24 History Xl] Pramipexole Di-HCl [Mirapex ER] 0.75 mg PO BID 07/15/24 07/15/24 History amantadine HCL [Amantadine] 100 mg PO BID 07/15/24 07/15/24 History Allergies Allergy/AdvReac Type Severity Reaction Status Date / Time Sulfa (Sulfonamide Allergy Rash/Hives Verified 07/15/24 16:57 Antibiotics) Physical Exam Vitals: Vital Signs Temp Pulse Resp BP Pulse Ox 07/15/24 18:56 86 16 156/81 96 07/15/24 15:23 98.6 F 100 18 98 Intake and Output 07/15/24 07/15/24 07/15/24 06:59 14:59 22:59 Other: Weight 56.699 kg Results CBC & Chem 7: 07/15/24 19:34 07/15/24 19:34
[2024-07-15] MEDS: KETOROLAC 15 MG/ML 1 ML VIAL IVP PRN (23:57)
[2024-07-16] MEDS: PANTOPRAZOLE 40 MG TABLET PO SCH (07:30)
[2024-07-16] MEDS: CARBIDOPA-LEVODOPA ER 50-200MG 1 EACH TABLET.ER PO SCH (07:30)
[2024-07-16] MEDS: MORPHINE SULFATE 4 MG/ML SYRINGE IV PRN (07:46)
[2024-07-16 07:54] LABS: Basophils % (A) 1 %; Eosinophils # (A) 0.1 k/uL (0-0.7); Eosinophils % (A) 2 %; HCT 37.3 % (34.0-46.0); HGB 11.6 gm/dL (11.4-16.0); Hypochromasia Slight; Lymphocytes # (A) 0.9 k/uL (1.0-4.8); Lymphocytes % (A) 14 %; MCH 30.3 pg (25.0-35.0); MCV 97.8 fL (80.0-100.0); Monocytes # (A) 0.4 k/uL (0-1.0); Monocytes % (A) 6 %; Neutrophils # (A) 4.9 k/uL (1.3-7.7); Neutrophils % (A) 76 %; Platelet Count 294 k/uL (150-450); RBC 3.82 m/uL (3.80-5.40); RDW 12.9 % (11.5-15.5); WBC 6.4 k/uL (3.8-10.6)
[2024-07-16 08:08] LABS: African American GFR (CKD) >90 (>60 ml/min/1.73 sqM); Anion Gap -1 mmol/L; Blood Urea Nitrogen 26 mg/dL (7-17); Carbon Dioxide 31 mmol/L (22-30); Chloride 107 mmol/L (98-107); Glucose 93 mg/dL (74-99); Non-African American GFR(CKD) >90 (>60 ml/min/1.73 sqM); Potassium 4.1 mmol/L (3.5-5.1); Sodium 137 mmol/L (137-145)
[2024-07-16] MEDS ORDERED: PANTOPRAZOLE 40 MG/10 ML VIAL IV SCH (09:00)
[2024-07-16] MEDS ORDERED: ENOXAPARIN 40 MG/0.4 ML SYRINGE SQ SCH (09:00)
[2024-07-16] MEDS: CARBIDOPA-LEVODOPA ER 25-100MG 1 EACH TABLET.ER PO SCH (10:00)
--- NOTE | 2024-07-16 12:41 | P.HPOR ---
History of Present Illness H&P Date: 07/16/24 Chief Complaint: Pelvic pain and right leg numbness Nany is a 69 y/o female with a history of Parkinson's disease who presented to the emergency department yesterday with pelvic pain and right leg numbness. She states she was just sitting up and felt extreme pain with numbness in her right lower leg and foot. She normally ambulates at home with a walker by her does a lot for her she states. She has noticed increased issues with her Parkinson's and has an appointment with Dr. Shaw next week. The patient has recently saw Dr. Becerril in our office for a possible left radial nerve palsy due to laying against her walker for a period of time after a recent fall. She denies any fall that preceded this pain. Upon exam in the ER, a CT revealed a right piriformis hematoma, right sacral ala fracture, and a left acetabulum fracture. The patient was admitted for further evaluation and monitoring by orthopedics. Review of Systems Constitutional: Denies chills, Denies fatigue, Denies fever Cardiovascular: Denies chest pain, Denies shortness of breath Respiratory: Denies cough Musculoskeletal: bilateral: hip pain, hip stiffness, hip swelling Neurological: Reports numbness (right foot) Past Medical History Additional Past Medical History / Comment(s): parkinsons, History of Any Multi-Drug Resistant Organisms: None Reported Past Surgical History: Orthopedic Surgery Additional Past Surgical History / Comment(s): kaylaograhm, Past Anesthesia/Blood Transfusion Reactions: No Reported Reaction Past Psychological History: No Psychological Hx Reported Smoking Status: Never smoker Past Alcohol Use History: None Reported Past Drug Use History: None Reported Medications and Allergies Home Medications Medication Instructions Recorded Confirmed Type Carbidopa-Levodopa ER 25-100Mg 1 tab PO BID@1000,1900 07/15/24 07/15/24 History [Sinemet CR 25-100 mg] Carbidopa-Levodopa ER 50-200Mg 1 tab PO BID@0700,1500 07/15/24 07/15/24 History [Sinemet CR 50-200 mg] Metoprolol Succinate (ER) [Toprol 25 mg PO HS 07/15/24 07/15/24 History Xl] Pramipexole Di-HCl [Mirapex ER] 0.75 mg PO BID 07/15/24 07/15/24 History amantadine HCL [Amantadine] 100 mg PO BID 07/15/24 07/15/24 History Allergies Allergy/AdvReac Type Severity Reaction Status Date / Time Sulfa (Sulfonamide Allergy Rash/Hives Verified 07/15/24 16:57 Antibiotics) Physical Examination The patient is a 69 y/o female who is no acute distress. She is alert and oriented x3. Exam of the bilateral lower extremities reveal no obvious deformities. There is involuntary movements, mostly to the right leg. There is decreased sensation to the right ankle and top of her foot, there is very little sensation to the plantar surface of the right foot. No neurological changes to the left. ROM of the bilateral hips were not tested today. Calves are soft and nontender. Circulatory status is intact. Results CT of the pelvis dated 07/15/2024 reveals a left periprosthetic fracture of the left acetabulum, acute right sacral ala fracture, right piriformis hematoma tracking near the sciatic nerve, and left inferior pubic rami fracture that may be subacute. - Labs Labs: Abnormal Lab Results - Last 24 Hours (Table) 07/15/24 07/16/24 07/16/24 Range/Units 19:34 07:34 07:34 Lymphocytes # 0.9 L (1.0-4.8) k/uL Chloride 110 H (98-107) mmol/L Carbon Dioxide 31 H (22-30) mmol/L BUN 23 H 26 H (7-17) mg/dL Alkaline Phosphatase 145 H (38-126) U/L Total Protein 5.9 L (6.3-8.2) g/dL Albumin 3.3 L (3.5-5.0) g/dL H & H 07/15/24 07/16/24 Range/Units 19:34 07:34 Hgb 12.1 11.6 (11.4-16.0) gm/dL Hct 36.9 37.3 (34.0-46.0) % Coagulation 07/15/24 Range/Units 19:34 INR 1.1 (<1.2) Result Diagrams: 07/16/24 07:34 07/16/24 07:34 Assessment and Plan (1) Hematoma of muscle Current Visit: Yes Status: Acute Code(s): T14.8XXA - OTHER INJURY OF UNSPE CIFIED BODY REGION, INITIAL ENCOUNTER SNOMED Code(s): 488199733 (2) Periprosthetic fracture around internal prosthetic hip joint Current Visit: Yes Status: Acute Code(s): M97.8XXA - PERIPROSTH FRACTURE AROUND OTHER INTERNAL PROSTH JOINT, INIT; Z96.649 - PRESENCE OF UNSPECIFIED ARTIFICIAL HIP JOINT SNOMED Code(s): 890409411 (3) Sacral fracture Current Visit: Yes Status: Acute Code(s): S32.10XA - UNSP FRACTURE OF SACRUM, INIT ENCNTR FOR CLOSED FRACTURE SNOMED Code(s): 944433676 Plan: The clinical and CT findings were discussed with the patient and her . The case was discussed at length with Dr. Kwan. No acute surgical intervention is planned at this time. Continue pain control with [place] and IV Morphine as needed. She may weightbear as tolerated to the right leg and non-weightbearing to the left leg at this time. PT/OT has been ordered. She is having issues with her Parkinson's lately and has an appointment to see Dr. Shaw next week. We will consult neurology here to rule out anything new going on due to her somewhat recent falls. She will likely need skilled rehab placement. Internal medicine is also on consult. We will continue to monitor her neuro status of the right foot closely and repeat the CT in a couple days to reevaluate the hematoma.
--- NOTE | 2024-07-16 13:11 | P.PN ---
Subjective Progress Note Date: 07/16/24 Patient is a 69 year old female with past medical history of parkinson's disease, osteoporosis and frequent falls who presented to the ED with right sided pelvic pain and right leg numbness. She mentions the pain started yesterday when she was sitting in her chair. She was trying to reach for something when she experienced the pain on the right side of the hip and lower back. The pain was a 10 out of 10 severity. Subsequently her right leg started feeling numb. Currently the pain is still 10/10 that makes it difficult for her to ambulate but she notes an improvement in her numbness. She uses a walker at home to ambulate. She states that she falls frequently due to her parkinson's disease and most of the times she lands on her hips. She reports sustaining a fall about 6 weeks ago. At the time she fell on her left side and hurt her left upper extremity. She did not hit her head, but she was not able to get up on her own and was lying on the floor for 1 hour. She did get it checked out at the [facility] and the evaluation was negative for a fracture. Additionally, she states her dyskinesia has gotten worse recently. The dyskinesia is intermittent. When she doesn't move for a long time her dyskinesia tends to get worse. She reports that both her legs have been getting progressively weaker over the past several months. Moreover, she had a bone density scan done in 2020 that shows T score < -2.5, consitent with osteoporosis. She also endorses shortness of breath, nausea while taking her medications and an increased fear of falling. Denies fever, chills, chest pain, cough, abdominal pain, vomiting, slurred speech, headache. Case discussed with the ED provider and ED documentation reviewed. In the ED patient was treated with Dilaudid 0.5 mg, ketorolac 15 mg, lorazepam 1 mg, morphine 4 mg. -Vitals on admission T 98.6 F, ID 100, RR 18, BP 156/81, O2 sat 98% on room air -Lumbar spine X ray shows no acute fracture, mild multilevel disc degeneration -Hip/pelvis x-ray shows mild right hip osteoarthritis, left hip arthroplasty with hardware intact and in appropriate alignment, no acute fracture -Pelvis CT shows acute left periprosthetic fracture of the left acetabulum, acute right sacral ala fracture with minimal separation, right pyriformis hematoma tracking near sciatic nerve, left inferior pubic ramus fracture with cortical buckling-subacute/remote -CBC shows WBC 7.9, hemoglobin 12.1, platelet count 274 -CMP shows Na 138, potassium 4.0, BUN 23, ALP 145, total protein 5.9, albumin 3.3 -Coagulation panel shows PT 11.5, INR 1.1, APTT 22.2 06/16/2024 patient seen and examined at bedside. Patient reported pain in right hip area. No acute events overnight. WBC 6.4 hemoglobin 11.6 platelet count 294,000 sodium 127 potassium 4.1 bicarb 31 BUN 26 creatinine 0.61 glucose 93 calcium 9 Review of systems: Pertinent positives and negatives as discussed in HPI, a complete review of systems was performed and all other systems are negative. Pertinent imaging and labs reviewed. Physical examination: Vital signs reviewed General: non toxic, no distress, appears at stated age Derm: no unusual rashes/lesions, warm Head: atraumatic, normocephalic, symmetric Eyes: EOMI, anicteric sclera, pupils equal round reactive to light ENT: Nose and ears atraumatic Neck: No cervical lymphadenopathy, trachea midline, supple Mouth: no lip lesion, mucus membranes moist Cardiovascular: S1S2 reg, no murmur Lungs: CTA bilateral, no rhonchi, no rales, no accessory muscle use Abdominal: soft, nontender to palpation, no guarding Ext: cogwheel rigidity, Dyskinesia and strength 3/5 of the LE b/l, no gross muscle atrophy, no contractures, positive dorsalis pedis pulse bilateral, no edema, range of motion of right lower extremity limited by pain negative for swelling or bruising Neuro: CN II-XI grossly intact, no gross focal neuro deficits Psych: Alert and oriented x3, appropriate affect and mood Assessment/Plan: Patient is a 69 year old female with PMH of parkinson's disease, osteoporosis and multiple falls who presented to the ED with right sided pelvic pain and right leg numbness. She has been admitted for observation and monitoring by the primary surgical team and she is seen in medical consultation for medical management. Active: #. Elevated alkaline phosphatase -ALP 145 -Vitamin D 25-Hydroxy level in 02/12 -17.3 ng/ml -Bone density scan in 2020 showed T< -2.5, osteoporosis -Liver ultrasound in 06/06 showed no evidence for acute process -Monitor CMP #. Parkinson's disease -Continue home meds Carbidop-levodopa 25-100 mg PO BID(1000,1900) and 50-100 PO BID(0700,1500) -Continue Amantadine 100 mg PO BID -Continue Pramipexole 0.75 mg PO BID #. Hypertension -Continue home med metoprolol 25 mg PO HS #. Right Sacral ala fracture #. Right pyriformis hematoma #. Periprosthetic fracture of the left acetabulum -Pelvis CT shows acute left periprosthetic fracture of the left acetabulum, acute right sacral ala fracture with minimal separation, right pyriformis hematoma tracking near sciatic nerve, left inferior pubic ramus fracture with cortical buckling-subacute/remote -Lumbar spine X ray shows no acute fracture, mild multilevel disc degeneration -Hip/pelvis x-ray shows mild right hip osteoarthritis, left hip arthroplasty with hardware intact and in appropriate alignment, no acute fracture -Patient currently on acetaminophen 60 mg p.o. every 6 hours as needed, ibuprofen 400 mg p.o. every 6 hours as needed, ketorolac 15 mg IVP every 6 hours as needed(PS 4-6), [place] p.o. every 4 hours as needed (PS 4-6)morphine 4 mg IV every 4 hours as needed(PS 7-10) for pain management per primary surgical team. #. Nausea and vomiting -Continue Ondansetron 4 mg IVP Q8HR PRN F: None E: Replete as required N: Regular diet A: Requires support to ambulate DVT prophylaxis: Defer to primary surgery GI prophylaxis: Pantoprazole 40 mg PO daily Dispo: Patient stable from medical standpoint. Likely for outpatient rehab on discharge Deb Powell MD PGY-1/Duct Layer Dictation was produced using e[employer] dictation software. please excuse any grammatical, word or spelling errors. I saw and evaluated the patient during the hill and critical portions of this encounter, and discussed the case in detail with the resident author of this note, I agree with the Assessment and Plan, and my changes, if any, are noted below. Objective - Vital Signs Vital signs: Vital Signs Temp 98.1 F 07/16/24 00:39 Pulse 70 07/16/24 00:39 Resp 13 07/16/24 00:39 BP 153/72 07/16/24 00:39 Pulse Ox 96 07/16/24 00:39 FiO2 Intake & Output 07/15/24 07/16/24 07/16/24 18:59 06:59 18:59 Intake Total 540 Balance 540 Weight 56.699 kg 56.699 kg Intake: Oral 540 Other: # Voids 2 - Labs CBC & Chem 7: 07/16/24 07:34 07/16/24 07:34 Labs: Abnormal Lab Results - Last 24 Hours (Table) 07/15/24 Range/Units 19:34 Chloride 110 H (98-107) mmol/L BUN 23 H (7-17) mg/dL Alkaline Phosphatase 145 H (38-126) U/L Total Protein 5.9 L (6.3-8.2) g/dL Albumin 3.3 L (3.5-5.0) g/dL
--- NOTE | 2024-07-16 15:49 | P.CNNES ---
History of Present Illness Consult date: 07/16/24 Requesting physician: Lizzie Hendricks Reason for Consult: hx of Parkinson's History of Present Illness: This is a 69-year-old woman with history of Parkinson's disease presented emergency department because of pelvic pain. Patient is not a great historian. History is obtained from the patient's . Seems the patient has underlying history of Parkinson's disease over the last 20 years according to the . The patient she is following up with Dr. Shaw for her Parkinson disease and she is on multiple medication but she was inconsistent of exactly what medication she is on and the doses. She stated that she is on Sinemet 50- 100, 1 tablet twice a day and the first dose is at 8 AM and the second dose is 12 PM, pramipexole 25 mg twice a day at 10:00 and the next one is at 1, amantadine 25 mg twice a day first dose is 8:00 and second dose is 12 PM. I notified the patient I think the amantadine is probably 100 mg but she stated no is 25 mg. The was not aware of the actual dose. Patient stated that is all her Parkinson's medication. But then the stated that she is on a different dose of the Sinemet 25-100mg states she takes only at 4 PM. Patient states that her neurologist is trying to modify her dose but she does not stand why. She does feel like her condition is slowly worse. She is falling more. She is not losing consciousness. She stated when she initially started taking the carbidopa levodopa she had significant improvement. Her neurologist recommended that he take the carbidopa levodopa pill at nighttime but it seems that she is refusing according to the patient's . She is patient feels early in the morning without any medication she feels drastically better and she wants to come off some of these medication. But she continues to have some abno rmal movement in her legs. It seems that she was seen by a neurologist over at [facility] then saw a neurologist over at [facility] then she is locally neurologist with Dr. Lucas then in the last [address] Shaw. She has an appoint with Dr. Shaw next week. Some of the workup during this hospital visit consisted of: Sodium, glucose, AST ALT are within normal limits. CT pelvis is reported as acute left periprosthetic fracture of the left acetabulum. Acute right sacral alisia fracture with minimal separation. Right piriformis hematoma tracking near the psychiatric nerve. Left inferior pubic ramus fracture with cortical bulking, this is age-indeterminate possibly subacute to more remote. Review of Systems Limited but As per HPI. Past Medical History Additional Past Medical History / Comment(s): parkinsons, History of Any Multi-Drug Resistant Organisms: None Reported Past Surgical History: Orthopedic Surgery Additional Past Surgical History / Comment(s): mamograhm, Past Anesthesia/Blood Transfusion Reactions: No Reported Reaction Past Psychological History: No Psychological Hx Reported Smoking Status: Never smoker Past Alcohol Use History: None Reported Past Drug Use History: None Reported Medications and Allergies Home Medications Medication Instructions Recorded Confirmed Type Carbidopa-Levodopa ER 25-100Mg 1 tab PO BID@1000,1900 07/15/24 07/15/24 History [Sinemet CR 25-100 mg] Carbidopa-Levodopa ER 50-200Mg 1 tab PO BID@0700,1500 07/15/24 07/15/24 History [Sinemet CR 50-200 mg] Metoprolol Succinate (ER) [Toprol 25 mg PO HS 07/15/24 07/15/24 History Xl] Pramipexole Di-HCl [Mirapex ER] 0.75 mg PO BID 07/15/24 07/15/24 History amantadine HCL [Amantadine] 100 mg PO BID 07/15/24 07/15/24 History Allergies Allergy/AdvReac Type Severity Reaction Status Date / Time Sulfa (Sulfonamide Allergy Rash/Hives Verified 07/15/24 16:57 Antibiotics) Physical Examination - Vital Signs Vital Signs: Vital Signs Temp Pulse Pulse Resp BP BP Pulse Ox 07/16/24 14:00 97.8 F 91 16 150/70 90 L 07/16/24 07:34 98.2 F 82 16 122/67 96 07/16/24 00:39 98.1 F 70 13 153/72 96 07/15/24 22:49 98.2 F 83 18 149/76 95 07/15/24 21:18 99.1 F 07/15/24 20:50 102 H 18 139/69 93 L 07/15/24 18:56 86 16 156/81 96 07/15/24 15:23 98.6 F 100 18 98 Intake and Output 07/16/24 07/16/24 07/16/24 06:59 14:59 22:59 Intake Total 540 Balance 540 Intake: Oral 540 Other: Voiding Method External Catheter # Voids 2 General: Lying in bed and is not in acute distress. Neuro: Patient is awake alert oriented to self place and time. Is following simple commands. She is somewhat slow to respond to question. No aphasia. Pupils are round equal reactive to light. Visual zuleta are full to confro ntation. Extraocular movements intact no nystagmus. No facial weakness. No dysarthria Motor: Strength is hard to access individual muscles because of pain. But in uppers lifting uppers above gravity. While lowers is deferred because of pain. Has intermittent movements of the lowers from time to time as if it is restless/dyskinesia. No resting tremors of hands and no increase tone around wrists, elbows. Sensation: Normal to touch throughout. Plantars: Mute bilaterally. Results - Laboratory Findings CBC and BMP: 07/16/24 07:34 07/16/24 07:34 Abnormal Lab Findings: Abnormal Labs 07/15/24 07/16/24 07/16/24 19:34 07:34 07:34 Lymphocytes # 0.9 L Chloride 110 H Carbon Dioxide 31 H BUN 23 H 26 H Alkaline Phosphatase 145 H Total Protein 5.9 L Albumin 3.3 L Assessment and Plan Assessment: This is a 69-year-old woman with history of chronic Parkinson and her condition is progressively getting worse and she is on multiple medication. She is having recurrent falls. Seen by different neurologist in the past and in the last 5 years seems follows up with Dr. Shaw and has an appoint with them next week. She presents to the Emergency department because of pelvic pain. She was found to have fracture. Progressive worsening of her Parkinson's disease and is on multiple medication. Falls due to above Acute left acetabulum as well as right sacral fracture Sanjay. Right piriformis hematoma Left inferior pubic ramus fracture. Plan: Patient is on multiple Parkinson's disease medication but she is not a great historian and does not know her exact medication she is on the frequency and the dose. She thinks she is on amantadine 25 mg twice daily and the called the pharmacy while I was there, and it seems the patient is on amantadine 100 mg 1 tablet twice a day. She states she is on Pramipexole 25mg at 10am. But is seems she is on 0.75mg dose bid. She is on Sinemet 50-100 1 tab bid, 25-100 1 tab bid but states only takes at 4pm. Patient feels that when she wakes up early in the morning she is her best condition without any medication and she wants to wean off some of the medication. I will defer modification of her anti-Parkinson's medication to her neurologist, Dr. Shaw and she has an appoint with them next week. I notified the patient to keep a journal of the medication she is taking. The will bring the bottles to her neurologist appointment (Dr. Shaw next week). Patient was notified that she can get a second opinion with a movement disorder specialist through [facility] movement disorder specialist specially since she seen him in the past and she felt there is improvement in the past. Ordered CT of the head especially with the falls. Will defer the rest of the medical management to primary and other specialist The plan discussed with the patient's was at bedside and the medicine team. If CT of the head is unremarkable for any acute process or bleed then no further neurological work-up. Thank you for the consultation. Time with Patient: Greater than 30
--- NOTE | 2024-07-16 16:50 | CT ---
EXAMINATION TYPE: CT brain wo con DATE OF EXAM: 07/16/2024 4:13 PM COMPARISON: None. CLINICAL INDICATION: Female, 69 years old with history of falls, Parkinson's. Pain. TECHNIQUE: CT of the brain is performed utilizing 3 mm thick sections through the posterior fossa and 3 mm thick sections through the remaining calvarium. Study is performed within 24 hours of arrival to the hospital. Contrast used: mL of , (none if empty) CT DLP: 1051 mGycm, Automated exposure control for dose reduction was used. FINDINGS: No abnormal hyperdensity is present to suggest an acute intracranial hemorrhage. No mass lesion is evident. No acute infarcts are evident. Ventricles and sulci are prominent for the patient age. Paranasal sinuses and mastoid air cells within the [id number] are clear. IMPRESSION: 1. No acute intracranial process. Follow up MRI can be performed as clinically indicated. [facility], Workstation: [email or web address], 07/16/2024 4:47 PM
[2024-07-16] MEDS: HYDROcodone/APAP 7.5-325MG 1 EACH TAB PO PRN (20:19)
[2024-07-17 08:29] LABS: Basophils # (A) 0.05 X 10*3/uL (0.00-0.10); Basophils % (A) 0.7 %; Eosinophils # (A) 0.17 X 10*3/uL (0.04-0.35); Eosinophils % (A) 2.4 %; HGB 10.8 g/dL (12.0-15.0); Lymphocytes # (A) 1.17 X 10*3/uL (0.90-5.00); Lymphocytes % (A) 16.8 %; MCH 30.9 pg (27.0-32.0); MCHC 31.8 g/dL (32.0-37.0); MCV 97.1 FL (80.0-97.0); Mean Platelet Volume 11.2 FL (9.5-12.2); Monocytes # (A) 0.65 X 10*3/uL (0.20-1.00); Monocytes % (A) 9.3 %; NRBC Per 100 WBC 0 X 10*3/uL (0.00-0.01); Neutrophils # (A) 4.91 X 10*3/uL (1.80-7.70); Neutrophils % (A) 70.4 %; Platelet Count 323 X 10*3/uL (140-440); RDW 13.3 % (11.5-14.5); WBC 6.98 X 10*3/uL (4.50-10.00)
--- NOTE | 2024-07-17 08:44 | P.PN ---
Subjective Progress Note Date: 07/17/24 Principal diagnosis: Left acetabulum fracture, right piriformis hematoma, right sacral ala fracture Nany is a 69 y/o female with a history of Parkinson's disease who presented to the emergency department yesterday with pelvic pain and right leg numbness. She states she was just sitting up and felt extreme pain with numbness in her right lower leg and foot. She normally ambulates at home with a walker by her does a lot for her she states. She has noticed increased issues with her Parkinson's and has an appointment with Dr. Shaw next week. The patient has recently saw Dr. Becerril in our office for a possible left radial nerve palsy due to laying against her walker for a period of time after a recent fall. She denies any fall that preceded this pain. Upon exam in the ER, a CT revealed a right piriformis hematoma, right sacral ala fracture, and a left acetabulum fracture. The patient was admitted for further evaluation and monitoring by orthopedics. 07/17/2024: Today, the patient states her pain was under control until this morning. She just received some medication. The right foot numbness seems to come and go now according to the patient. No new complaints. Objective - Vital Signs Vital signs: Vital Signs Temp 97.6 F 07/17/24 01:35 Pulse 95 07/17/24 01:35 Resp 18 07/16/24 20:17 BP 148/68 07/17/24 01:35 Pulse Ox 95 07/17/24 01:35 FiO2 Intake & Output 07/16/24 07/17/24 07/17/24 18:59 06:59 18:59 Output Total 800 450 Balance -800 -450 Output: Urine 800 450 Other: Voiding Method External Catheter External Catheter - Exam The patient is a 69 y/o female who is no acute distress. She is alert and oriented x3. Exam of the bilateral lower extremities reveal no obvious defor mities. There is involuntary movements, mostly to the right leg. There is decreased sensation to the right ankle and top of her foot, there is very little sensation to the plantar surface of the right foot. No neurological changes to the left. ROM of the bilateral hips were not tested today. Good plantar flexion and extension to the right foot, EHL is functioning. Calves are soft and nontender. Circulatory status is intact. - Labs CBC & Chem 7: 07/17/24 02:36 07/16/24 07:34 Labs: Abnormal Lab Results - Last 24 Hours (Table) 07/17/24 Range/Units 02:36 RBC 3.50 L (4.10-5.20) X 10*6/uL Hgb 10.8 L (12.0-15.0) g/dL Hct 34.0 L (37.2-46.3) % MCV 97.1 H (80.0-97.0) FL MCHC 31.8 L (32.0-37.0) g/dL Assessment and Plan (1) Hematoma of muscle Current Visit: Yes Status: Acute Code(s): T14.8XXA - OTHER INJURY OF UNSPECIFIED BODY REGION, INITIAL ENCOUNTER SNOMED Code(s): 830105128 (2) Periprosthetic fracture around internal prosthetic hip joint Current Visit: Yes Status: Acute Code(s): M97.8XXA - PERIPROSTH FRACTURE AROUND OTHER INTERNAL PROSTH JOINT, INIT; Z96.649 - PRESENCE OF UNSPECIFIED ARTIFICIAL HIP JOINT SNOMED Code(s): 861546907 (3) Sacral fracture Current Visit: Yes Status: Acute Code(s): S32.10XA - UNSP FRACTURE OF SAC RUM, INIT ENCNTR FOR CLOSED FRACTURE SNOMED Code(s): 761300276 Plan: The clinical findings were discussed with the patient.The case was discussed at length with Dr. Kwan. No acute surgical intervention is planned at this time. Continue pain control with [place] and IV Morphine as needed. She may weightbear as tolerated to the right leg and non-weightbearing to the left leg at this time. PT/OT are consulted. She will likely need skilled rehab placement. Internal medicine is also on consult. Her right foot numbness seems to be improving slowly. We will continue to monitor her neuro status of the right foot closely and repeat the CT maybe tomorrow to reevaluate the hematoma if her pain and foot numbness remains.
[2024-07-17 08:58] LABS: BUN/Creat Ratio 49.83 Ratio (12.00-20.00); Blood Urea Nitrogen 29.9 mg/dL (9.0-27.0); Chloride 104 mmol/L (96-109); Glucose 98 mg/dL (70-110); Potassium 3.9 mmol/L (3.5-5.5); Sodium 139 mmol/L (135-145)
[2024-07-17 08:59] LABS: Calcium 8.8 mg/dL (8.7-10.3)
--- NOTE | 2024-07-17 09:13 | P.PN ---
Subjective Progress Note Date: 07/17/24 Patient is a 69 year old female with past medical history of parkinson's disease, osteoporosis and frequent falls who presented to the ED with right sided pelvic pain and right leg numbness. She mentions the pain started yesterday when she was sitting in her chair. She was trying to reach for something when she experienced the pain on the right side of the hip and lower back. The pain was a 10 out of 10 severity. Subsequently her right leg started feeling numb. Currently the pain is still 10/10 that makes it difficult for her to ambulate but she notes an improvement in her numbness. She uses a walker at home to ambulate. She states that she falls frequently due to her parkinson's disease and most of the times she lands on her hips. She reports sustaining a fall about 6 weeks ago. At the time she fell on her left side and hurt her left upper extremity. She did not hit her head, but she was not able to get up on her own and was lying on the floor for 1 hour. She did get it checked out at the [facility] and the evaluation was negative for a fracture. Additionally, she states her dyskinesia has gotten worse recently. The dyskinesia is intermittent. When she doesn't move for a long time her dyskinesia tends to get worse. She reports that both her legs have been getting progressively weaker over the past several months. Moreover, she had a bone density scan done in 2020 that shows T score < -2.5, consitent with osteoporosis. She also endorses shortness of breath, nausea while taking her medications and an increased fear of falling. Denies fever, chills, chest pain, cough, abdominal pain, vomiting, slurred speech, headache. Case discussed with the ED provider and ED documentation reviewed. In the ED patient was treated with Dilaudid 0.5 mg, ketorolac 15 mg, lorazepam 1 mg, morphine 4 mg. -Vitals on admission T 98.6 F, KS 100, RR 18, BP 156/81, O2 sat 98% on room air -Lumbar spine X ray shows no acute fracture, mild multilevel disc degeneration -Hip/pelvis x-ray shows mild right hip osteoarthritis, left hip arthroplasty with hardware intact and in appropriate alignment, no acute fracture -Pelvis CT shows acute left periprosthetic fracture of the left acetabulum, acute right sacral ala fracture with minimal separation, right pyriformis hematoma tracking near sciatic nerve, left inferior pubic ramus fracture with cortical buckling-subacute/remote -CBC shows WBC 7.9, hemoglobin 12.1, platelet count 274 -CMP shows Na 138, potassium 4.0, BUN 23, ALP 145, total protein 5.9, albumin 3.3 -Coagulation panel shows PT 11.5, INR 1.1, APTT 22.2 07/16/2024 patient seen and examined at bedside. Patient reported pain in right hip area. No acute events overnight. WBC 6.4 hemoglobin 11.6 platelet count 294,000 sodium 127 potassium 4.1 bicarb 31 BUN 26 creatinine 0.61 glucose 93 calcium 9 07/17/2024 patient seen and examined at bedside. Patient reported pain in the right hip area and right foot numbness. Pain still noted to be still at maximum 01/21. No acute events overnight. WBC 6.98 hemoglobin 10.8 platelet count 3 23,000 sodium 139 potassium 3.9 bicarb 24 BUN 29.9 creatinine 0.6 glucose [address] shows no acute intracranial process. Review of systems: Pertinent positives and negatives as discussed in HPI, a complete review of systems was performed and all other systems are negative. Pertinent imaging and labs reviewed. Physical examination: Vital signs reviewed General: non toxic, no distress, appears at stated age Derm: no unusual rashes/lesions, warm Head: atraumatic, normocephalic, symmetric Eyes: EOMI, anicteric sclera, pupils equal round reactive to light ENT: Nose and ears atraumatic Neck: No cervical lymphadenopathy, trachea midline, supple Mouth: no lip lesion, mucus membranes moist Cardiovascular: S1S2 reg, no murmur Lungs: CTA bilateral, no rhonchi, no rales, no accessory muscle use Abdominal: soft, nontender to palpation, no guarding Ext: cogwheel rigidity, Dyskinesia and strength 3/5 of the LE b/l, no gross muscle atrophy, no contractures, positive dorsalis pedis pulse bilateral, no edema, range of motion of right lower extremity limited by pain negative for swelling or bruising, decreased sensation of the right foot Neuro: CN II-XI grossly intact, no gross focal neuro deficits Psych: Alert and oriented x3, appropriate affect and mood Assessment/Plan: Patient is a 69 year old female with PMH of parkinson's disease, osteoporosis and multiple falls who presented to the ED with right sided pelvic pain and right leg numbness. She has been admitted for observation and monitoring by the primary surgical team and she is seen in medical consultation for medical man agement. Active: #. Elevated alkaline phosphatase, stable -ALP 145 -Vitamin D 25-Hydroxy level in 02/12 -17.3 ng/ml -Bone density scan in 2020 showed T< -2.5, osteoporosis -Liver ultrasound in 06/06 showed no evidence for acute process -Monitor CMP #. Parkinson's disease -Continue home meds Carbidop-levodopa 25-100 mg PO BID(1000,1900) and 50-100 PO BID(0700,1500) -Continue Amantadine 100 mg PO BID -Continue Pramipexole 0.75 mg PO BID -Neurology consulted. Sees Dr. Shaw on outpatient basis. Brain CT ordered shows no acute intracranial process #. Hypertension -Continue home med metoprolol 25 mg PO HS #. Right Sacral ala fracture #. Right pyriformis hematoma #. Periprosthetic fracture of the left acetabulum #. Right foot numbness likely due to above -Pelvis CT shows acute left periprosthetic fracture of the left acetabulum, acute right sacral ala fracture with minimal separation, right pyriformis hematoma tracking near sciatic nerve, left inferior pubic ramus fracture with cortical buckling-subacute/remote. Possible repeat CT tomorrow -Lumbar spine X ray shows no acute fracture, mild multilevel disc degeneration -Hip/pelvis x-ray shows mild right hip osteoarthritis, left hip arthroplasty with hardware intact and in appropriate alignment, no acute fracture -Pain management per surgical team. On [place] p.o. and IV morphine as needed -PT OT consulted. Recommended outpatient rehab. #. Nausea and vomiting -Continue Ondansetron 4 mg IVP Q8HR PRN F: None E: Replete as required N: Regular diet A: Requires support to ambulate DVT prophylaxis: Defer to primary surgery GI prophylaxis: Pantoprazole 40 mg PO daily Dispo: Patient stable from medical standpoint. Likely for outpatient rehab on discharge Deb Powell MD PGY-1/Document Specialist Dictation was produced using [employer] dictation software. please excuse any grammatical, word or spelling errors. I saw and evaluated the patient during the hill and critical portions of this en counter, and discussed the case in detail with the resident author of this note, I agree with the Assessment and Plan, and my changes, if any, are noted below. Objective - Vital Signs Vital signs: Vital Signs Temp 97.6 F 07/17/24 01:35 Pulse 95 07/17/24 01:35 Resp 18 07/16/24 20:17 BP 148/68 07/17/24 01:35 Pulse Ox 95 07/17/24 01:35 FiO2 Intake & Output 07/16/24 07/17/24 07/17/24 18:59 06:59 18:59 Output Total 800 450 Balance -800 -450 Output: Urine 800 450 Other: Voiding Method External Catheter External Catheter - Labs CBC & Chem 7: 07/17/24 02:36 07/17/24 02:36 Labs: Abnormal Lab Results - Last 24 Hours (Table) 07/17/24 Range/Units 02:36 RBC 3.50 L (4.10-5.20) X 10*6/uL Hgb 10.8 L (12.0-15.0) g/dL Hct 34.0 L (37.2-46.3) % MCV 97.1 H (80.0-97.0) FL MCHC 31.8 L (32.0-37.0) g/dL
[2024-07-17] MEDS: HYDROmorphone 1 MG/ML 1 ML SYRINGE IVP STA (11:16)
--- NOTE | 2024-07-18 09:03 | P.PN ---
Subjective Progress Note Date: 07/18/24 Principal diagnosis: Left acetabulum fracture, right piriformis hematoma, right sacral ala fracture Nany is a 69 y/o female with a history of Parkinson's disease who presented to the emergency department yesterday with pelvic pain and right leg numbness. She states she was just sitting up and felt extreme pain with numbness in her right lower leg and foot. She normally ambulates at home with a walker by her does a lot for her she states. She has noticed increased issues with her Parkinson's and has an appointment with Dr. Shaw next week. The patient has recently saw Dr. Becerril in our office for a possible left radial nerve palsy due to laying against her walker for a period of time after a recent fall. She denies any fall that preceded this pain. Upon exam in the ER, a CT revealed a right piriformis hematoma, right sacral ala fracture, and a left acetabulum fracture. The patient was admitted for further evaluation and monitoring by orthopedics. 07/17/2024: Today, the patient states her pain was under control until this morning. She just received some medication. The right foot numbness seems to come and go now according to the patient. No new complaints. 07/18/2024: the patient states her pain was under somewhat control this morning and the medication is helping. The right foot numbness still seems to come and go according to the patient. No new complaints. Objective - Vital Signs Vital signs: Vital Signs Temp 98.2 F 07/18/24 06:59 Pulse 73 07/18/24 06:59 Resp 18 07/18/24 06:59 BP 165/77 07/18/24 06:59 Pulse Ox 95 07/18/24 06:59 FiO2 Intake & Output 07/17/24 07/18/24 07/18/24 18:59 06:59 18:59 Output Total 200 550 Balance -200 -550 Output: Urine 200 550 Other: Voiding Method External Catheter External Catheter # Voids 2 - Exam The patient is a 69 y/o female who is no acute distress. She is alert and oriented x3. Exam of the bilateral lower extremities reveal no obvious deformities. There is involuntary movements, mostly to the right leg. There is decreased sensation to the right ankle and top of her foot, there is improved sensation to the plantar surface of the right foot. No neurological changes to the left. ROM of the bilateral hips were not tested today. Good plantar flexion and extension to the right foot, EHL is functioning. Calves are soft and nontender. Circulatory status is intact. - Labs CBC & Chem 7: 07/17/24 02:36 07/17/24 02:36 Assessment and Plan (1) Hematoma of muscle Current Visit: Yes Status: Acute Code(s): T14.8XXA - OTHER INJURY OF UNSPECIFIED BODY REGION, INITIAL ENCOUNTER SNOMED Code(s): 520593594 (2) Periprosthetic fracture around internal prosthetic hip joint Current Visit: Yes Status: Acute Code(s): M97.8XXA - PERIPROSTH FRACTURE LUZ ELENA UND OTHER INTERNAL PROSTH JOINT, INIT; Z96.649 - PRESENCE OF UNSPECIFIED ARTIFICIAL HIP JOINT SNOMED Code(s): 075752227 (3) Sacral fracture Current Visit: Yes Status: Acute Code(s): S32.10XA - UNSP FRACTURE OF SACRUM, INIT ENCNTR FOR CLOSED FRACTURE SNOMED Code(s): 819658837 Plan: The clinical findings were discussed with the patient.The case was discussed at length with Dr. Kwan. No acute surgical intervention is planned at this time. Continue pain control with [place] and IV Morphine as needed. She may weightbear as tolerated to the right leg and non-weightbearing to the left leg at this time. PT/OT are consulted. We awaiting skilled rehab placement. CT of the pelvis was ordered today to reassess the hematoma. Internal medicine is also on consult. Her right foot numbness seems to be improving slowly. We will continue to monitor her neuro status of the right foot closely. She may discharge today if her pain is controlled without Morphine and a bed is available at rehab.
[2024-07-18 09:10] LABS: Basophils # (A) 0.06 X 10*3/uL (0.00-0.10); Basophils % (A) 0.8 %; Eosinophils # (A) 0.12 X 10*3/uL (0.04-0.35); Eosinophils % (A) 1.7 %; HCT 35.9 % (37.2-46.3); HGB 11.5 g/dL (12.0-15.0); Lymphocytes # (A) 0.91 X 10*3/uL (0.90-5.00); Lymphocytes % (A) 12.6 %; MCH 31.3 pg (27.0-32.0); MCV 97.8 FL (80.0-97.0); Mean Platelet Volume 11.4 FL (9.5-12.2); Monocytes # (A) 0.61 X 10*3/uL (0.20-1.00); Monocytes % (A) 8.5 %; NRBC Per 100 WBC 0 X 10*3/uL (0.00-0.01); Neutrophils # (A) 5.45 X 10*3/uL (1.80-7.70); Neutrophils % (A) 75.6 %; Platelet Count 345 X 10*3/uL (140-440); RBC 3.67 X 10*6/uL (4.10-5.20); RDW 13.1 % (11.5-14.5); WBC 7.21 X 10*3/uL (4.50-10.00)
[2024-07-18 09:25] LABS: Blood Urea Nitrogen 19.7 mg/dL (9.0-27.0); Calcium 9.2 mg/dL (8.7-10.3); Carbon Dioxide 26.4 mmol/L (21.6-31.8); Chloride 101 mmol/L (96-109); Glucose 107 mg/dL (70-110); Potassium 4.3 mmol/L (3.5-5.5); Sodium 138 mmol/L (135-145)
--- NOTE | 2024-07-18 10:25 | CT ---
EXAMINATION TYPE: CT pelvis wo con DATE OF EXAM: 07/18/2024 COMPARISON: 08-06 CLINICAL INDICATION: Female, 69 years old with history of reassess piriformis hematoma; PHH, reassess piriformis hematoma CT DLP: 388.2 mGycm Automated exposure control for dose reduction was used. FINDINGS: The right piriformis hematoma is unchanged compared to the prior study. There is no change in the left acetabular periprosthetic fracture or in the right sacral alar fractur e. There is probable remote fracture of the inferior left pubic ramus which is stable. No new abnormalities are seen. IMPRESSION: 1. Stable right piriformis hematoma. 2. No change in the pelvic fractures as described above. [facility], , 07/18/2024 10:22 AM
--- NOTE | 2024-07-18 12:58 | P.PN ---
Subjective Progress Note Date: 07/18/24 Patient is a 69 year old female with past medical history of parkinson's disease, osteoporosis and frequent falls who presented to the ED with right sided pelvic pain and right leg numbness. She mentions the pain started yesterday when she was sitting in her chair. She was trying to reach for something when she experienced the pain on the right side of the hip and lower back. The pain was a 10 out of 10 severity. Subsequently her right leg started feeling numb. Currently the pain is still 10/10 that makes it difficult for her to ambulate but she notes an improvement in her numbness. She uses a walker at home to ambulate. She states that she falls frequently due to her parkinson's disease and most of the times she lands on her hips. She reports sustaining a fall about 6 weeks ago. At the time she fell on her left side and hurt her left upper extremity. She did not hit her head, but she was not able to get up on her own and was lying on the floor for 1 hour. She did get it checked out at the [facility] and the evaluation was negative for a fracture. Additionally, she states her dyskinesia has gotten worse recently. The dyskinesia is intermittent. When she doesn't move for a long time her dyskinesia tends to get worse. She reports that both her legs have been getting progressively weaker over the past several months. Moreover, she had a bone density scan done in 2020 that shows T score < -2.5, consitent with osteoporosis. She also endorses shortness of breath, nausea while taking her medications and an increased fear of falling. Denies fever, chills, chest pain, cough, abdominal pain, vomiting, slurred speech, headache. Case discussed with the ED provider and ED documentation reviewed. In the ED patient was treated with Dilaudid 0.5 mg, ketorolac 15 mg, lorazepam 1 mg, morphine 4 mg. -Vitals on admission T 98.6 F, PA 100, RR 18, BP 156/81, O2 sat 98% on room air -Lumbar spine X ray shows no acute fracture, mild multilevel disc degeneration -Hip/pelvis x-ray shows mild right hip osteoarthritis, left hip arthroplasty with hardware intact and in appropriate alignment, no acute fracture -Pelvis CT shows acute left periprosthetic fracture of the left acetabulum, acute right sacral ala fracture with minimal separation, right pyriformis hematoma tracking near sciatic nerve, left inferior pubic ramus fracture with cortical buckling-subacute/remote -CBC shows WBC 7.9, hemoglobin 12.1, platelet count 274 -CMP shows Na 138, potassium 4.0, BUN 23, ALP 145, total protein 5.9, albumin 3.3 -Coagulation panel shows PT 11.5, INR 1.1, APTT 22.2 07/16/2024 patient seen and examined at bedside. Patient reported pain in right hip area. No acute events overnight. WBC 6.4 hemoglobin 11.6 platelet count 294,000 sodium 127 potassium 4.1 bicarb 31 BUN 26 creatinine 0.61 glucose 93 calcium 9 07/17/2024 patient seen and examined at bedside. Patient reported pain in the right hip area and right foot numbness. Pain still noted to be still at maximum 6/10. No acute events overnight. WBC 6.98 hemoglobin 10.8 platelet count 3 23,000 sodium 139 potassium 3.9 bicarb 24 BUN 29.9 creatinine 0.6 glucose [address] shows no acute intracranial process. 07/18/2024 patient seen and examined at bedside. Patient reported improved control of pain. Still noted to have right foot numbness. No acute events overnight. WBC 7.21 hemoglobin 11.5 platelet count 345,000 sodium 138 potassium 4.3 BUN 19.7 creatinine 0.5 glucose 107 calcium 9.2 Review of systems: Pertinent positives and negatives as discussed in HPI, a complete review of systems was performed and all other systems are negative. Pertinent imaging and labs reviewed. Physical examination: Vital signs reviewed General: non toxic, no distress, appears at stated age Derm: no unusual rashes/lesions, warm Head: atraumatic, normocephalic, symmetric Eyes: EOMI, anicteric sclera, pupils equal round reactive to light ENT: Nose and ears atraumatic Neck: No cervical lymphadenopathy, trachea midline, supple Mouth: no lip lesion, mucus membranes moist Cardiovascular: S1S2 reg, no murmur Lungs: CTA bilateral, no rhonchi, no rales, no accessory muscle use Abdominal: soft, nontender to palpation, no guarding Ext: cogwheel rigidity, Dyskinesia and strength 3/5 of the LE b/l, no gross muscle atrophy, no contractures, positive dorsalis pedis pulse bilateral, no edema, range of motion of right lower extremity limited by pain negative for swelling or bruising, decreased sensation of the right foot Neuro: CN II-XI grossly intact, no gross focal neuro deficits Psych: Alert and oriented x3, appropriate affect and mood Assessment/Plan: Patient is a 69 year old female with PMH of parkinson's disease, osteoporosis and multiple falls who presented to the ED with right sided pelvic pain and right leg numbness. She has been admitted for observation and monitoring by the primary surgical team and she is seen in medical consultation for medical management. Active: #. Elevated alkaline phosphatase, stable -ALP 145 -Vitamin D 25-Hydroxy level in 02/12 -17.3 ng/ml -Bone density scan in 2020 showed T< -2.5, osteoporosis -Liver ultrasound in 06/06 showed no evidence for acute process -Monitor CMP #. Parkinson's disease -Continue home meds Carbidop-levodopa 25-100 mg PO BID(1000,1900) and 50-100 PO BID(0700,1500) -Continue Amantadine 100 mg PO BID -Continue Pramipexole 0.75 mg PO BID -Neurology consulted. Sees Dr. Shaw on outpatient basis. Brain CT ordered shows no acute intracranial process #. Hypertension -Continue home med metoprolol 25 mg PO HS #. Right Sacral ala fracture #. Right pyriformis hematoma #. Periprosthetic fracture of the left acetabulum #. Right foot numbness likely due to above -Pelvis CT shows acute left periprosthetic fracture of the left acetabulum, acute right sacral ala fracture with minimal separation, right pyriformis hematoma tracking near sciatic nerve, left inferior pubic ramus fracture with cortical buckling-subacute/remote. -Lumbar spine X ray shows no acute fracture, mild multilevel disc degeneration -Hip/pelvis x-ray shows mild right hip osteoarthritis, left hip arthroplasty with hardware intact and in appropriate alignment, no acute fracture -Pain management per surgical team. On [place] p.o. and IV morphine as needed -PT OT consulted. Recommended outpatient rehab. -Repeat CT pelvis today shows stable right piriformis hematoma with no change in the pelvic fractures noted above. #. Nausea and vomiting -Continue Ondansetron 4 mg IVP Q8HR PRN F: None E: Replete as required N: Regular diet A: Requires support to ambulate DVT prophylaxis: Defer to primary surgery GI prophylaxis: Pantoprazole 40 mg PO daily Dispo: Patient stable from medical standpoint. Likely for outpatient rehab/ECF on discharge Deb Powell MD PGY-1/Sales And Customer Relations Rep Dictation was produced using [employer] dictation software. please excuse any grammatical, word or spelling errors. I saw and evaluated the patient during the hill and critical portions of this encounter, and discussed the case in detail with the resident author of this note, I agree with the Assessment and Plan, and my changes, if any, are noted below. Repeat CT stable hematoma. Medically stable for discharge to SNF when insurance auth obtained. Discussed with case management. Objective - Vital Signs Vital signs: Vital Signs Temp 98.3 F 07/18/24 01:14 Pulse 75 07/18/24 01:14 Resp 16 07/18/24 01:14 BP 167/80 07/18/24 01:14 Pulse Ox 96 07/18/24 01:14 FiO2 Intake & Output 07/17/24 07/18/24 07/18/24 18:59 06:59 18:59 Output Total 200 550 Balance -200 -550 Output: Urine 200 550 Other: Voiding Method External Catheter External Catheter # Voids 2 - Labs CBC & Chem 7: 07/18/24 05:48 07/18/24 05:48 Labs: Abnormal Lab Results - Last 24 Hours (Table) 07/17/24 07/17/24 Range/Units 02:36 02:36 RBC 3.50 L (4.10-5.20) X 10*6/uL Hgb 10.8 L (12.0-15.0) g/dL Hct 34.0 L (37.2-46.3) % MCV 97.1 H (80.0-97.0) FL MCHC 31.8 L (32.0-37.0) g/dL BUN 29.9 H (9.0-27.0) mg/dL BUN/Creatinine Ratio 49.83 H (12.00-20.00) Ratio
[2024-07-18] MEDS: ONDANSETRON 4 MG/2 ML VIAL IVP PRN (18:37)
[2024-07-18] MEDS: IBUPROFEN 400 MG TAB PO PRN (23:18)
[2024-07-19 07:51] VITALS: BP 163/91; PULSE 74; RESP 18; TEMP 97.3
[2024-07-19 08:36] LABS: Basophils # (A) 0.04 X 10*3/uL (0.00-0.10); Basophils % (A) 0.6 %; Eosinophils # (A) 0.16 X 10*3/uL (0.04-0.35); Eosinophils % (A) 2.3 %; HCT 36.5 % (37.2-46.3); HGB 11.8 g/dL (12.0-15.0); Lymphocytes # (A) 1.05 X 10*3/uL (0.90-5.00); MCH 31.3 pg (27.0-32.0); MCHC 32.3 g/dL (32.0-37.0); MCV 96.8 FL (80.0-97.0); Mean Platelet Volume 11.2 FL (9.5-12.2); Monocytes # (A) 0.61 X 10*3/uL (0.20-1.00); Monocytes % (A) 8.7 %; NRBC Per 100 WBC 0 X 10*3/uL (0.00-0.01); Neutrophils % (A) 72.8 %; Platelet Count 348 X 10*3/uL (140-440); RBC 3.77 X 10*6/uL (4.10-5.20); RDW 12.9 % (11.5-14.5)
--- NOTE | 2024-07-19 08:54 | P.PN ---
Subjective Progress Note Date: 07/19/24 Principal diagnosis: Left acetabulum fracture, right piriformis hematoma, right sacral ala fracture Nany is a 69 y/o female with a history of Parkinson's disease who presented to the emergency department yesterday with pelvic pain and right leg numbness. She states she was just sitting up and felt extreme pain with numbness in her right lower leg and foot. She normally ambulates at home with a walker by her does a lot for her she states. She has noticed increased issues with her Parkinson's and has an appointment with Dr. Shaw next week. The patient has recently saw Dr. Becerril in our office for a possible left radial nerve palsy due to laying against her walker for a period of time after a recent fall. She denies any fall that preceded this pain. Upon exam in the ER, a CT revealed a right piriformis hematoma, right sacral ala fracture, and a left acetabulum fracture. The patient was admitted for further evaluation and monitoring by orthopedics. 07/17/2024: Today, the patient states her pain was under control until this morning. She just received some medication. The right foot numbness seems to come and go now according to the patient. No new complaints. 07/18/2024: The patient states her pain was under somewhat control this morning and the medication is helping. The right foot numbness still seems to come and go according to the patient. No new complaints. 07/19/2024: The patient states her pain is uncontrolled and she required Morphine this morning. She does not want a stronger pain pill if she can help it. The right foot numbness still seems to come and go according to the patient. No new complaints. We are awaiting [facility] for rehab but a peer to peer is required. Repeat CT revealed a stable hematoma. Objective - Vital Signs Vital signs: Vital Signs Temp 97.3 F L 07/19/24 07:50 Pulse 74 07/19/24 07:50 Resp 18 07/19/24 07:50 BP 163/91 07/19/24 07:50 Pulse Ox 92 L 07/19/24 07:50 FiO2 Intake & Output 07/18/24 07/19/24 07/19/24 18:59 06:59 18:59 Intake Total 240 Output Total 900 800 Balance -660 -800 Intake: Oral 240 Output: Urine 900 800 Other: Voiding Method External Catheter External Catheter - Exam The patient is a 69 y/o female who is no acute distress. She is alert and oriented x3. Exam of the bilateral lower extremities reveal no obvious deformities. There is involuntary movements, mostly to the right leg. There is decreased sensation to the right ankle and top of her foot, there is improved sensation to the plantar surface of the right foot. No neurological changes to the left. ROM of the bilateral hips were not tested today. Good plantar flexion and extension to the right foot, EHL is functioning. Calves are soft and nont heidi. Circulatory status is intact. - Labs CBC & Chem 7: 07/19/24 03:50 07/18/24 05:48 Labs: Abnormal Lab Results - Last 24 Hours (Table) 07/18/24 07/18/24 07/19/24 Range/Units 05:48 05:48 03:50 RBC 3.67 L 3.77 L (4.10-5.20) X 10*6/uL Hgb 11.5 L 11.8 L (12.0-15.0) g/dL Hct 35.9 L 36.5 L (37.2-46.3) % MCV 97.8 H (80.0-97.0) FL Immature Gran # 0.06 H (0.00-0.04) X 10*3/uL Creatinine 0.5 L (0.6-1.5) mg/dL BUN/Creatinine Ratio 39.40 H (12.00-20.00) Ratio Assessment and Plan (1) Hematoma of muscle Current Visit: Yes Status: Acute Code(s): T14.8XXA - OTHER INJURY OF UNSPECIFIED BODY REGION, INITIAL ENCOUNTER SNOMED Code(s): 141427957 (2) Periprosthetic fracture around internal prosthetic hip joint Current Visit: Yes Status: Acute Code(s): M97.8XXA - PERIPROSTH FRACTURE AROUND OTHER INTERNAL PROSTH JOINT, INIT; Z96.649 - PRESENCE OF UNSPECIFIED ARTIFICIAL HIP JOINT SNOMED Code(s): 458060119 (3) Sacral fracture Current Visit: Yes Status: Acute Code(s): S32.10XA - UNSP FRACTURE OF SACRUM, INIT ENCNTR FOR CLOSED FRACTURE SNOMED Code(s): 700636277 Plan: The clinical and CT findings were discussed with the patient.The case was discussed at length with Dr. Kwan. No acute surgical intervention is planned at this time. Continue pain control with [place] and IV Morphine as needed. She may weightbear as tolerated to the right leg and non-weightbearing to the left leg at this time. Continue PT/OT. We awaiting skilled rehab placement. Internal medicine is also on consult. Her right foot numbness seems to be improving slowly. We will continue to monitor her neuro status of the right foot closely. She may discharge today if her pain is controlled without Morphine and auth is approved.
[2024-07-19 09:02] LABS: BUN/Creat Ratio 31.67 Ratio (12.00-20.00); Calcium 9.2 mg/dL (8.7-10.3); Carbon Dioxide 25.7 mmol/L (21.6-31.8); Chloride 101 mmol/L (96-109); Glucose 102 mg/dL (70-110); Potassium 4.4 mmol/L (3.5-5.5); Sodium 138 mmol/L (135-145)
--- NOTE | 2024-07-19 10:40 | P.PN ---
Subjective Progress Note Date: 07/19/24 Patient is a 69 year old female with past medical history of parkinson's disease, osteoporosis and frequent falls who presented to the ED with right sided pelvic pain and right leg numbness. She mentions the pain started yesterday when she was sitting in her chair. She was trying to reach for something when she experienced the pain on the right side of the hip and lower back. The pain was a 10 out of 10 severity. Subsequently her right leg started feeling numb. Currently the pain is still 10/10 that makes it difficult for her to ambulate but she notes an improvement in her numbness. She uses a walker at home to ambulate. She states that she falls frequently due to her parkinson's disease and most of the times she lands on her hips. She reports sustaining a fall about 6 weeks ago. At the time she fell on her left side and hurt her left upper extremity. She did not hit her head, but she was not able to get up on her own and was lying on the floor for 1 hour. She did get it checked out at the [facility] and the evaluation was negative for a fracture. Additionally, she states her dyskinesia has gotten worse recently. The dyskinesia is intermittent. When she doesn't move for a long time her dyskinesia tends to get worse. She reports that both her legs have been getting progressively weaker over the past several months. Moreover, she had a bone density scan done in 2020 that shows T score < -2.5, consitent with osteoporosis. She also endorses shortness of breath, nausea while taking her medications and an increased fear of falling. Denies fever, chills, chest pain, cough, abdominal pain, vomiting, slurred speech, headache. Case discussed with the ED provider and ED documentation reviewed. In the ED patient was treated with Dilaudid 0.5 mg, ketorolac 15 mg, lorazepam 1 mg, morphine 4 mg. -Vitals on admission T 98.6 F, NJ 100, RR 18, BP 156/81, O2 sat 98% on room air -Lumbar spine X ray shows no acute fracture, mild multilevel disc degeneration -Hip/pelvis x-ray shows mild right hip osteoarthritis, left hip arthroplasty with hardware intact and in appropriate alignment, no acute fracture -Pelvis CT shows acute left periprosthetic fracture of the left acetabulum, acute right sacral ala fracture with minimal separation, right pyriformis hematoma tracking near sciatic nerve, left inferior pubic ramus fracture with cortical buckling-subacute/remote -CBC shows WBC 7.9, hemoglobin 12.1, platelet count 274 -CMP shows Na 138, potassium 4.0, BUN 23, ALP 145, total protein 5.9, albumin 3.3 -Coagulation panel shows PT 11.5, INR 1.1, APTT 22.2 07/16/2024 patient seen and examined at bedside. Patient reported pain in right hip area. No acute events overnight. WBC 6.4 hemoglobin 11.6 platelet count 294,000 sodium 127 potassium 4.1 bicarb 31 BUN 26 creatinine 0.61 glucose 93 calcium 9 07/17/2024 patient seen and examined at bedside. Patient reported pain in the right hip area and right foot numbness. Pain still noted to be still at maximum 6/10. No acute events overnight. WBC 6.98 hemoglobin 10.8 platelet count 3 23,000 sodium 139 potassium 3.9 bicarb 24 BUN 29.9 creatinine 0.6 glucose [address] shows no acute intracranial process. 07/18/2024 patient seen and examined at bedside. Patient reported improved control of pain. Still noted to have right foot numbness. No acute events overnight. WBC 7.21 hemoglobin 11.5 platelet count 345,000 sodium 138 potassium 4.3 BUN 19.7 creatinine 0.5 glucose 107 calcium 9.2 07/19/2024 patient seen and examined at bedside. No acute events overnight. No new complaints. WBC 7 hemoglobin 11.8 platelet count 348,000 sodium 138 potassium 4.4 chloride 101 bicarb 25.7 BUN 19 creatinine 0.6 glucose 102 calcium 9.2 Review of systems: Pertinent positives and negatives as discussed in HPI, a complete review of sy stems was performed and all other systems are negative. Pertinent imaging and labs reviewed. Physical examination: Vital signs reviewed General: non toxic, no distress, appears at stated age Derm: no unusual rashes/lesions, warm Head: atraumatic, normocephalic, symmetric Eyes: EOMI, anicteric sclera, pupils equal round reactive to light ENT: Nose and ears atraumatic Neck: No cervical lymphadenopathy, trachea midline, supple Mouth: no lip lesion, mucus membranes moist Cardiovascular: S1S2 reg, no murmur Lungs: CTA bilateral, no rhonchi, no rales, no accessory muscle use Abdominal: soft, nontender to palpation, no guarding Ext: cogwheel rigidity, Dyskinesia and strength 3/5 of the LE b/l, no gross muscle atrophy, no contractures, positive dorsalis pedis pulse bilateral, no edema, range of motion of right lower extremity limited by pain negative for swelling or bruising, decreased sensation of the right foot Neuro: CN II-XI grossly intact, no gross focal neuro deficits Psych: Alert and oriented x3, appropriate affect and mood Assessment/Plan: Patient is a 69 year old female with PMH of parkinson's disease, osteoporosis and multiple falls who presented to the ED with right sided pelvic pain and right leg numbness. She has been admitted for observation and monitoring by the primary surgical team and she is seen in medical consultation for medical management. Active: #. Elevated alkaline phosphatase, stable -ALP 145 -Vitamin D 25-Hydroxy level in 02/12 -17.3 ng/ml -Bone density scan in 2020 showed T< -2.5, osteoporosis -Liver ultrasound in 06/06 showed no evidence for acute process #. Parkinson's disease -Continue home meds Carbidop-levodopa 25-100 mg PO BID(1000,1900) and 50-100 PO BID(0700,1500) -Continue Amantadine 100 mg PO BID -Continue Pramipexole 0.75 mg PO BID -Neurology consulted. Sees Dr. Shaw on outpatient basis. Brain CT ordered shows no acute intracranial process #. Hypertension -Continue home med metoprolol 25 mg PO HS #. Right Sacral ala fracture #. Right pyriformis hematoma #. Periprosthetic fracture of the left acetabulum #. Right foot numbness likely due to above -Pelvis CT shows acute left periprosthetic fracture of the left acetabulum, acute right sacral ala fracture with minimal separation, right pyriformis hematoma tracking near sciatic nerve, left inferior pubic ramus fracture with cortical buckling-subacute/remote. -Lumbar spine X ray shows no acute fracture, mild multilevel disc degeneration -Hip/pelvis x-ray shows mild right hip osteoarthritis, left hip arthroplasty with hardware intact and in appropriate alignment, no acute fracture -Pain management per surgical team. On [place] p.o. and IV morphine as needed -PT OT consulted. Recommended outpatient rehab. -Repeat CT pelvis today shows stable right piriformis hematoma with no change in the pelvic fractures noted above. #. Nausea and vomiting -Continue Ondansetron 4 mg IVP Q8HR PRN F: None E: Replete as required N: Regular diet A: Requires support to ambulate DVT prophylaxis: Defer to primary surgery GI prophylaxis: Pantoprazole 40 mg PO daily Dispo: Patient stable from medical standpoint. Likely for outpatient rehab/ECF on discharge Deb Powell MD PGY-1/Stable Helper Dictation was produced using [employer] dictation software. please excuse any grammatical, word or spelling errors. I saw and evaluated the patient during the hill and critical portions of this encounter, and discussed the case in detail with the resident author of this note, I agree with the Assessment and Plan, and my changes, if any, are noted below. Objective - Vital Signs Vital signs: Vital Signs Temp 97.3 F L 07/19/24 07:50 Pulse 74 07/19/24 07:50 Resp 18 07/19/24 07:50 BP 163/91 07/19/24 07:50 Pulse Ox 92 L 07/19/24 07:50 FiO2 Intake & Output 07/18/24 07/19/24 07/19/24 18:59 06:59 18:59 Intake Total 240 Output Total 900 800 Balance -660 -800 Intake: Oral 240 Output: Urine 900 800 Other: Voiding Method External Catheter External Catheter - Labs CBC & Chem 7: 07/19/24 03:50 07/19/24 03:50 Labs: Abnormal Lab Results - Last 24 Hours (Table) 07/19/24 07/19/24 Range/Units 03:50 03:50 RBC 3.77 L (4.10-5.20) X 10*6/uL Hgb 11.8 L (12.0-15.0) g/dL Hct 36.5 L (37.2-46.3) % BUN/Creatinine Ratio 31.67 H (12.00-20.00) Ratio
--- NOTE | 2024-07-19 10:50 | P.DS ---
Providers Date of admission: 07/15/24 20:16 Expected date of discharge: 07/19/24 Attending physician: Eveline Kwan DO Consults: 07/15/24 19:51 Consult Physician Urgent Consulting Provider: Kane Lewis Consult Reason/Comments: Medical management Do you want consulting provider notified?: Yes 07/16/24 12:37 Consult Physician Routine Consulting Provider: Karan Marin Consult Reason/Comments: Hx Parkinson's, patient of Dr. Lockwood Do you want consulting provider notified?: Yes Primary care physician: Nguyễn Gandhi - Discharge Diagnosis(es) (1) Hematoma of muscle Current Visit: Yes Status: Acute (2) Periprosthetic fracture around internal prosthetic hip joint Current Visit: Yes Status: Acute (3) Sacral fracture Current Visit: Yes Status: Acute Hospital Course: Nany is a 69 y/o female with a history of Parkinson's disease who presented to the emergency department 07/15/2024 with pelvic pain and right leg numbness. She states she was just sitting up and felt extreme pain with numbness in her right lower leg and foot. She normally ambulates at home with a walker by her does a lot for her she states. She has noticed increased issues with her Parkinson's and has an appointment with Dr. Shaw next week. The patient has recently saw Dr. Becerril in our office for a possible left radial nerve palsy due to laying against her walker for a period of time after a recent fall. She denies any fall that preceded this pain. Upon exam in the ER, a CT revealed a right piriformis hematoma, right sacral ala fracture, and a left acetabulum frac ture. The patient was admitted for further evaluation and monitoring by orthopedics. On the day of discharge, the patient's hemoglobin and vitals are stable. Her pain is controlled on [place] 7.5/325mg. She is alert and oriented x3. Exam of the bilateral lower extremities reveal no obvious deformities. There is involuntary movements, mostly to the right leg. There is intermittent decreased sensation to the right ankle and top of her foot, there is improved sensation to the plantar surface of the right foot. No neurological changes to the left. Good plantar flexion and extension to the right foot, EHL is functioning. Calves are soft and nontender. Circulatory status is intact. She is orthopedically stable for discharge to skilled rehab today. Pertinent Studies: Laboratory Tests 07/19/24 03:50 WBC 7.00 RBC 3.77 L Hgb 11.8 L Hct 36.5 L Patient Condition at Discharge: Stable Plan - Discharge Summary Discharge Rx Participant: No New Discharge Prescriptions: New Acetaminophen Tab [Tylenol] 650 mg PO Q6HR PRN tab PRN Reason: Mild Pain Or Fever > 100.5 HYDROcodone/APAP 7.5-325MG [[place] 7.5-325] 1 tab PO Q4-6H PRN #30 tab PRN Reason: Pain Ibuprofen [Motrin] 400 mg PO Q6HR PRN tab PRN Reason: Mild Pain Or Fever > 100.5 Continue Carbidopa-Levodopa ER 50-200Mg [Sinemet CR 50-200 mg] 1 tab PO BID@0700,1500 Carbidopa-Levodopa ER 25-100Mg [Sinemet CR 25-100 mg] 1 tab PO BID@1000,1900 amantadine HCL [Amantadine] 100 mg PO BID Pramipexole Di-HCl [Mirapex ER] 0.75 mg PO BID Metoprolol Succinate (ER) [Toprol XL] 25 mg PO HS Discharge Medication List Carbidopa-Levodopa ER 25-100Mg [Sinemet CR 25-100 mg] 1 tab PO BID@1000,1900 07/15/24 [History] Carbidopa-Levodopa ER 50-200Mg [Sinemet CR 50-200 mg] 1 tab PO BID@0700,1500 1 09/15/23 [History] Metoprolol Succinate (ER) [Toprol XL] 25 mg PO HS 07/15/24 [History] Pramipexole Di-HCl [Mirapex ER] 0.75 mg PO BID 07/15/24 [History] amantadine HCL [Amantadine] 100 mg PO BID 07/15/24 [History] HYDROcodone/APAP 7.5-325MG [[place] 7.5-325] 1 tab PO Q4-6H PRN #30 tab 07/18/24 [Rx] Acetaminophen Tab [Tylenol] 650 mg PO Q6HR PRN tab 07/19/24 [Rx] Ibuprofen [Motrin] 400 mg PO Q6HR PRN tab 07/19/24 [Rx] Follow up Appointment(s)/Referral(s): Eveline Kwan DO [Doctor of Osteopathic Medicine] - 2 Weeks Nguyễn Gandhi DO [Primary Care Provider] - 1-2 days Activity/Diet/Wound Care/Special Instructions: Weightbearing as tolerated on the right leg and nonweightbearing on the left leg with a walker Discharge Disposition: TRANSFER TO SNF/ECF
--- NOTE | 2024-07-23 09:48 | CDI ---
Documentation Clarification Form Date: 07/23/2024 09:28:44 AM From: Rosalba Hensley RN, CCDS Email: [email or web address] Admit Date: 07/15/2024 08:16:00 PM Patient Name: Nany Burns Visit Number: [id number] Discharge Date: 07/19/2024 02:00:00 PM ATTENTION: The Clinical Documentation Specialists (CDI) and [facility] Coding Staff appreciate your assistance in clarifying documentation. Please respond to the clarification below the line at the bottom and electronically sign. The CDI & [facility] Coding staff will review the response and follow-up if needed. Please note: Queries are made part of the Legal Health Record. If you have any questions, please contact the author of this message via ITS. Provider: Lizzie PERRIN A pelvic fracture is documented in the progress notes. Additional clarification regarding the etiology of the fracture is requested. History/Risk Factors: Osteoporosis, Parkinson's and frequent falls. She ambulates with a walker. Presented with pelvic pain and right leg numbness. Admitted with pelvic fractures Clinical Indications: H&P: "CT of the pelvis reveals a left periprosthetic fracture of the left acetabulum, acute right sacral ala fracture, right piriformis hematoma tracking near the sciatic nerve, and left inferior pubic rami fracture that may be subacute. No surgical intervention is planned at this time." 07/15 Right hip xray: Mild right hip osteoarthrosis. Left hip arthroplasty with hardware intact and in appropriate alignment. No acute fracture. 07/[address]: Acute left periprosthetic fracture of the left acetabulum. Acute right sacral ala fracture with minimal separation. Left inferior pubic ramus fracture with cortical buckling. 07/[address]: No change in the pelvic fractures 07/15 IM Consult: "69 year old female with PMH of parkinson's disease, osteoporosis and multiple falls who presented to the ED with right sided pelvic pain and right leg numbness. Bone density scan in 2020 showed T< -2.5, osteoporosis." Discharge summary: "Periprosthetic fracture around internal prosthetic hip joint. Sacral fracture." Treatment: PT/OT; pain control; non-weight bear to left leg; Outpatient rehab at discharge Please clarify the etiology of the fracture, if known: [ ] Pathological due to Osteoporosis [ ] Stress [ ] Traumatic [ ] Other (please specify): [ ] Unable to determine The fractures are most likely from a recent fall/trauma. [facility]
== END 2024-07-19 14:00 | DRG 535 ==
LOC: EC 15:18 → 4SSUR 20:16
PROVIDERS: ADMIT Orthopaedic Surgery Hand Surgery; ATTEND Orthopaedic Surgery Hand Surgery
DX: S32.592A Other specified fracture of left pubis, initial encounter for closed fracture (principal); S32.401A Unspecified fracture of right acetabulum, initial encounter for closed fracture; S32.402A Unspecified fracture of left acetabulum, initial encounter for closed fracture; M97.02XA Periprosthetic fracture around internal prosthetic left hip joint, initial encounter; S32.119A Unspecified Zone I fracture of sacrum, initial encounter for closed fracture; R11.2 Nausea with vomiting, unspecified; S70.02XA Contusion of left hip, initial encounter; G20.B1 Parkinson's disease with dyskinesia, without mention of fluctuations; R29.6 Repeated falls; Z91.81 History of falling; M81.0 Age-related osteoporosis without current pathological fracture; I10 Essential (primary) hypertension; M16.11 Unilateral primary osteoarthritis, right hip; W19.XXXA Unspecified fall, initial encounter; Z79.899 Other long term (current) drug therapy; Z96.642 Presence of left artificial hip joint; Y79.2 Prosthetic and other implants, materials and accessory orthopedic devices associated with adverse incidents; Z88.2 Allergy status to sulfonamides
CPT/HCPCS: 36415; 70450; 72100; 72192; 73502; 80048; 80053; 85025; 85610; 85730; 96374; 96375; 99285